=== PATIENT | male | born 1940 | race Caucasian/White ===

== ENCOUNTER 2019-11-10 13:20 | Outpatient (CLI) | payer MEDICARE, OTHER, SELFPAY ==
--- NOTE | ~2019-11-10 | XR_ITS ---
XR chest 2V 11/10/2019 13:40 Indication: Cough Procedure: 2 views chest Comparison: 05/16/2011 Findings: Heart size normal. No focal air space disease, pulmonary edema, pleural effusion or suspect ed pneumothorax. No acute osseous abnormality. Impression: 1: No acute cardiopulmonary disease. Reviewed, dictated and finalized at location A. Impression: 1: No acute cardiopulmonary disease.
== END 2019-11-10 13:21 | disposition home or self-care (01) ==
LOC: ANHIMG 13:28
PROVIDERS: PCP Internal Medicine; Visit Provider Internal Medicine
DX: R05 Cough (principal)
CPT/HCPCS: 71046

== ENCOUNTER 2019-11-16 08:59 | Outpatient (CLI) | payer MEDICARE, OTHER, SELFPAY ==
--- NOTE | ~2019-11-16 | CT_ITS ---
EXAMINATION: CT chest wo con DATE: 11/16/2019 09:35 INDICATION: Wheezing TECHNIQUE: Computed tomography (CT) of the chest was performed without intravenous contrast. The dose -length product (DLP) was 301.00 mGy-cm. Automated exposure control and iterative reconstruction tech nique were employed. COMPARISON: None FINDINGS: The lungs are free of acute opacities. There is no pleural effusion or pneumothorax. No pat hologically enlarged thoracic lymph nodes are identified. The heart size is normal. Calcified coronar y artery atherosclerosis is noted. There is a 3 mm nodule of the lingula. In the absence of known ris k factors, this likely represents old granulomatous disease and no further follow-up is necessary. Th ere is severe thoracic spondylosis. IMPRESSION: 1. No CT correlate for the patient's symptoms. Reviewed, dictated and finalized at location A.
== END 2019-11-16 09:00 | disposition home or self-care (01) ==
PROVIDERS: PCP Internal Medicine; Visit Provider Internal Medicine
DX: R06.2 Wheezing (principal)
CPT/HCPCS: 71250

== ENCOUNTER 2020-10-10 16:35 | Outpatient (CLI) | payer MEDICARE, SELFPAY ==
--- NOTE | ~2020-10-10 | XR_ITS ---
EXAMINATION: XR chest 2V DATE: 10/10/2020 16:52 INDICATION: 2-3 months of wheezing TECHNIQUE: PA and lateral views of the chest were obtained. COMPARISON: Chest radiograph dated 11/10/[address] dated 11/16/2019 FINDINGS: Mild eventration along the right hemidiaphragm. Mild biapical pleural-parenchymal scarring. Lungs rem ain clear with no focal airspace opacities, pulmonary edema, pleural effusion or pneumothorax. The ca rdiomediastinal silhouette is normal. Severe thoracic spondylosis. IMPRESSION: 1. No acute cardiopulmonary disease. Reviewed, dictated and finalized at location A. AIN ASSISTANT
== END 2020-10-10 16:36 | disposition home or self-care (01) ==
LOC: ANHIMG 16:40
PROVIDERS: PCP Internal Medicine; Visit Provider Internal Medicine
DX: R06.2 Wheezing (principal)
CPT/HCPCS: 71046

== ENCOUNTER 2021-04-18 09:03 | Outpatient (CLI) | payer MEDICARE, SELFPAY ==
--- NOTE | ~2021-04-18 | XR_ITS ---
XR knee LT min 4V 04/18/2021 09:25 Indication: Left knee pain Procedure: 4 views left knee Comparison: No prior studies for comparison. Findings: No fracture, subluxation or dislocation. No significant joint effusion. No foreign bodies. No joint space narrowing. There is anatomic alignment. Impression: 1: No significant bone or joint abnormality. Reviewed, dictated and finalized at location A. Impression: 1: No significant bone or joint abnormality.
== END 2021-04-18 09:04 | disposition home or self-care (01) ==
LOC: CHSIMG 09:06
PROVIDERS: PCP Internal Medicine; Visit Provider Orthopaedic Surgery
DX: M25.562 Pain in left knee (principal)
CPT/HCPCS: 73564

== ENCOUNTER 2021-08-27 10:35 | Outpatient (CLI) | payer MEDICARE, SELFPAY ==
--- NOTE | ~2021-08-27 | MR_ITS ---
EXAMINATION: MR knee LT wo con DATE: 08/27/2021 11:33 INDICATION: Left knee pain TECHNIQUE: Magnetic resonance imaging (MRI) of the left knee was performed without intravenous contra st. Sequences included coronal PD-weighted FSE, coronal PD-weighted FS FSE, sagittal T2-weighted FSE , sagittal PD-weighted FS FSE and axial PD weighted fat saturated FSE. COMPARISON: None. FINDINGS: Medial compartment: Complex tear of the medial meniscus with radial component at the lateral side of the posterior horn w ith longitudinal horizontal component extending medially and anterior into the body of the medial men iscus. There is marrow edema surrounding a minimally impacted subarticular fractures along a small re gion of the medial tibial plateau and juxtaposed anterior weightbearing medial femoral condyle. Both demonstrate mild depression of the articular cortices resulting in slight sloping to the articular co rtex along the anteromedial rim of the medial tibial plateau and very shallow concavity measuring 1.8 cm AP and 0.8 cm medial collateral along the articular cortex at the medial side of the anterior andreas ghtbearing medial femoral condyle. There is associated deep chondral fissuring and suggestion of some blisterlike delamination along the bone chondral interface interface at the anteromedial aspect of t he medial tibial plateau. Additional deep chondral fissuring/with the fracture at the anterior weight bearing medial femoral condyle with additional fissuring extending medially and posteriorly from the region of the fracture involving portion of the central weightbearing medial femoral condyle. Lateral compartment: Lateral meniscus is normal. Articular cartilage is normal. Patellofemoral compartment: Shallow chondral fissure involving less than 50% the cartilage thickness at the caudal aspect of the patellar apical ridge and patellofemoral cartilage is otherwise unremarkable. Ligaments and tendons: Anterior and posterior cruciate ligaments are normal. The medial collateral ligament and fibular steffen ateral ligament complex are normal. The extensor mechanism is normal. The visualized medial and later al hamstring tendons as well as the iliotibial band are normal. Fluid: Small left knee joint effusion. Suprapatellar plical band and mild synovitis at the suprapatellar ben ch. No loose osteochondral bodies identified. Osseous/other: Bone marrow signal is normal aside from previous noted edema associated with the fracture at the medi al tibial plateau and anterior weightbearing medial femoral condyle. No other fractures or pathologic marrow replacing process. IMPRESSION: 1. Complex tear of the body and posterior horn of the medial meniscus. 2. Osteochondral injuries including deep chondral fissuring and minimally depressed likely impaction fractures of the articular cortices at the anteromedial rim of the medial tibial plateau and juxtapos ed medial aspect of the anterior weightbearing medial femoral condyle. 3. Additional very small shallow chondral fissure at the inferior aspect of the patellar apical ridge . 4. Likely reactive small left knee joint effusion. Reviewed, dictated and finalized at location H. OPERATOR IMPRESSION: 1. Complex tear of the body and posterior horn of the medial meniscus. 2. Osteochondral injuries including deep chondral fissuring and minimally depre ssed likely impaction fractures of the articular cortices at the anteromedial r im of the medial tibial plateau and juxtaposed medial aspect of the anterior we ightbearing medial femoral condyle. 3. Additional very small shallow chondral fissure at the inferior aspect of the patellar apical ridge. 4. Likely reactive small left knee joint effusion.
== END 2021-08-27 10:36 | disposition home or self-care (01) ==
PROVIDERS: PCP Internal Medicine; Visit Provider Orthopaedic Surgery
DX: S83.232A Complex tear of medial meniscus, current injury, left knee, initial encounter (principal)
CPT/HCPCS: 73721

== ENCOUNTER 2022-01-20 08:13 | Outpatient (CLI) | payer MEDICARE, SELFPAY ==
[2022-01-20 09:07] LABS: Digoxin 0.7 ng/mL (0.8-2.0)
== END 2022-01-20 08:14 | disposition home or self-care (01) ==
PROVIDERS: PCP Internal Medicine; Visit Provider Anesthesiology
DX: Z51.81 Encounter for therapeutic drug level monitoring (principal); Z79.899 Other long term (current) drug therapy
CPT/HCPCS: 36415; 80162

== ENCOUNTER 2022-01-26 00:26 | Day surgery (SDC) | payer MEDICARE, SELFPAY ==
[2022-01-19 11:15] VITALS: BMI 29.6
--- NOTE | 2022-01-19 11:37 | PC.NURSE ---
Report to the Outpatient Waiting Room, entrance under the green pavilion located off [facility], at time _0830_ on date _01/26/22_. OR Time: __1030__. - You and your visitor will be asked a series of questions to screen for COVID 19 for your protection. - Only one visitor is allowed at this time. - The patient visitor is requested to leave or wait in car when not with patient. - A mask is required within the hospital. Patients may have clear liquids (water, carbonated beverages, clear teas, apple juice) until 3 hours prior to surgery (0730 AM)with a maximum of 20 ounces. - No food from midnight until time of surgery Take the following medications with a SIP of water the morning of surgery: _AMLODIPINE, DIGOXIN, METOPROLOL, SYMBICORT IF NEEDED_ Medications to discontinue per DR AMOR - PT STATES TO STOP DICLOFENAC, Date to take last dose 01/18/22_ Please no make-up, nail vietnamese, hairspray, perfume, deodorant, or body powder the day of surgery. No jewelry (including any body piercings) or valuables the day of surgery, leave them at home. Please take a shower or bath the night before, or the morning of, surgery with an antibacterial soap. Wear comfortable, loose fitting clothing. Children are encouraged to wear pajamas. - Jewelry must be removed prior to entering the operating room. Rings and piercings that are not removed may be cut off. - The hospital will not accept responsibility for valuables. - Please leave all valuables, including medications, at home the day of surgery. If you are going home after surgery, a licensed industrial tractor driver must drive you home. - NO public transportation without another adult. - We recommend that an adult stay with you for 24 hours following discharge. - We also recommend that you do not drive, make important decision, drink alcoholic beverages, or take any drugs that were not prescribed by your health care provider for at least 24 hours after your discharge time. Follow any additional instructions given to you from your surgeon. If you or anyone in your household have experienced Covid symptoms in the past week, please notify your surgeon or the nurse liaison at the phone number below for possible testing. Telephone instructions given to ____PT and asked if any additional questions and then verbalized understanding. Patient advised to call surgeon office or pre surgery nurse liaison [phone] if any additional questions.
[2022-01-26] VITALS (8 sets, daily range): BP systolic 138–163; BP diastolic 65–74; PULSE 61–72; RESP 10–19; TEMP 36.2–36.6; O2SAT 97–100
--- NOTE | 2022-01-26 07:14 | WPDHPUPDATE1 ---
History and Physical Update Update Date/Time: 01/26/22 07:14 History and Physical has been reviewed, including an updated exam of the patient. There are NO changes in the patient's condition. Risks, benefits, and alternatives have been discussed and questions answered. Patient agrees to proceed with procedure.
--- NOTE | 2022-01-26 12:45 | P.PNAN_ITS ---
Anes - Initial Pre Proc Eval Procedure: Operation Date: 01/26/22 13:30 Proposed Procedures p Left Knee Arthroscopy - Loyd Vergara MD Date/Time: 01/26/22 12:45 Surgeon: Loyd Vergara MD Pre Op Diagnosis: Lt Knee Medial Meniscus Tear Patient Data Age: 81 Gender: M Height: 1.78 m Weight: 93.63 kg Allergies Allergy/AdvReac Type Severity Reaction Status Date / Time No Known Allergies Allergy Verified 01/26/22 12:09 Home Medications Medication Instructions Recorded Confirmed Type digoxin 125 mcg (0.125 mg) tablet 125 mcg PO DAILY 08/21/19 01/26/22 History atorvastatin 40 mg tablet (Lipitor) 40 mg PO HS 04/11/20 01/26/22 History diclofenac sodium 75 mg 75 mg PO BID PRN pain #180 tabs 06/19/21 01/26/22 Rx tablet,delayed release amlodipine 2.5 mg tablet 2.5 mg QAM 01/19/22 01/26/22 History budesonide-formoterol HFA 160 2 puff inhalation Q12H PRN 01/19/22 01/26/22 History mcg-4.5 mcg/actuation aerosol Shortness Of Breath inhaler (Symbicort) metoprolol tartrate 50 mg tablet 50 mg BID 01/19/22 01/26/22 History tamsulosin 0.4 mg capsule 0.4 mg PO HS 01/19/22 01/26/22 History Patient hx anesthesia problems: none Family hx anesthesia problems: none Results Review: All pre-operative results and documents have been reviewed as part of the pre- operative evaluation. [facility] Past Medical History Medical History Afib Arrhythmia Arthritis Cataracts, bilateral HLD (hyperlipidemia) HTN (hypertension) Prediabetes Surgical History Surgical History History of skin surgery basal cell removed from nose Family History Family History Sibling Diabetes mellitus Carcinoma of colon Father Diabetes mellitus Other Family history of arthritis Social History Social History Smoking status: Never smoker Second hand tobacco smoke exposure: No Alcohol intake: never Substance use: never Substance use type: does not use Living arrangements: with family Gender identity (if verbalized by the patient): Male Spiritual care concerns: No Anes - Eval Final PreProcedure Day of Procedure 01/26/22 12:45 Patient weight: overweight Heart: regular rate and rhythm Airway: Mallampati scale class II Neurological: alert and oriented ASA classification: III Emergent: no Anesthesia type and monitoring: general LMA and standard monitoring Results Review: All pre-operative results and documents have been reviewed as part of the pre- operative evaluation. Informed Consent: The patient's anesthetic plan and its attendant risks and benefits were discussed with the patient/family/POA. Questions were solicited and answers provided to the satisfaction of the patient/family/POA.
[2022-01-26] MEDS: LACTATED RINGERS 1,000 ML 30 ML IV CONT ×2 (12:54→16:30)
[2022-01-26] MEDS: ACETAMINOPHEN 500 MG TABLET 1000 MG PO (13:44)
[2022-01-26] MEDS: CELECOXIB 200 MG CAPSULE PO (13:44)
[2022-01-26] MEDS: ceFAZolin 2 GM/D5W 50 ML 2 GM/50 ML BAG IVPB (15:11)
[2022-01-26] MEDS: methylPREDNISolone ACETATE 80 MG/ML VIAL I-ARTICULR (15:56)
[2022-01-26] MEDS: BUPIVACAINE HCL 0.5% PF 30 ML VIAL INFILTRATE (15:56)
--- NOTE | 2022-01-26 16:17 | W.PM.PROC2 ---
Procedure Note - Detailed Date of Procedure 01/26/22 Pre-op Diagnosis Lt Knee Medial Meniscus Tear Post-op Diagnosis Other (SAME WITH [facility]D MEDIAL COMPARTMENT) Procedure Performed LEFT KNEE SCOPE Surgeon Loyd Vergara MD Anesthesia General Description of Procedure PATIENT WAS TAKEN TO THE OR. LEFT LEG WAS PREPPED AND DRAPED STERILE. TROCARS WERE PLACED IN THE USUAL FASHION. CAMERA WAS INTRODUCED. THERE WAS CHONDROMALACIA TO THE PATELLA FEMORAL JOINT. THERE WAS A LOT OF SYNOVITIS IN ALL COMPARTMENTS. THE MEDIAL COMPARTMENT SHOWED FULL THICKNESS CARTILAGE LOSS. A SHAVER WAS USED TO PREFORM A CHONDROPLASTY. THERE WAS A COMPLEX MEDIAL MENISCUS TEAR. THE TEAR WAS RESECTED WITH A BITER AND A SHAVER DOWN TO A SMOOTH BASE. THE ACL WAS INTACT. THE LATERAL MENISCUS WAS NOT TORN. THE LATERAL COMPARTMENT HAD MINIMAL CHONDROMALACIA. CHONDROPLASTY WAS PREFORMED. A SYNOVECTOMY WAS PREFORMED WELL. THE PATELLO FEMORAL JOINT UNDERWENT CHONDROPLASTY. THERE WAS GRADE 2 CHONDROMALACIA IN PART OF THE TROCHLEA AND PART OF THE PATELLA. SYNOVECTOMY WAS PREFORMED IN THE SUPERIOR MEDIAL COMPARTMENT. THE WOUNDS WERE APPROXIMATED WITH 4.0 NYLON. STERILE DRESSING WAS APPLIED. PATIENT WAS EXTUBATED. Estimated Blood Loss 5 Complications No immediate complications Condition Stable Disposition PACU
[2022-01-26] MEDS: fentaNYL CITRATE INJ (*CRX) 100 MCG/2 ML VIAL 25 MCG IV PUSH ×3 (16:24→16:47)
[2022-01-26] MEDS: oxyCODONE HCL (*CRX) 5 MG TAB IR PO (17:34)
== END 2022-01-26 18:00 | disposition home or self-care (01) ==
PROVIDERS: PCP Internal Medicine; Visit Provider Orthopaedic Surgery
PROC: (CPT 29870; principal; 2022-01-26 13:30)
DX: M23.332 Other meniscus derangements, other medial meniscus, left knee (principal); M17.12 Unilateral primary osteoarthritis, left knee; M22.42 Chondromalacia patellae, left knee; M65.862 Other synovitis and tenosynovitis, left lower leg; I10 Essential (primary) hypertension; E78.5 Hyperlipidemia, unspecified; R73.03 Prediabetes; Z79.51 Long term (current) use of inhaled steroids
CPT/HCPCS: 29881; A9270; J0690; J1040; J2704; J3010; J7120

== ENCOUNTER → 2022-12-19 15:03 | Outpatient (CLI) | payer MEDICARE, SELFPAY ==
--- NOTE | ~2022-12-19 | XR_ITS ---
EXAMINATION: XR chest 2V 12/19/2022 15:42 INDICATION: Wheezing. Cough. PROCEDURE: 2 view chest COMPARISON: 10/10/2020 FINDINGS: The lungs are clear. The cardiomediastinal silhouette is within normal limits. There are no pleural effusions. There is no pneumothorax suspected. The lungs are hyperinflated which is cons istent with, but not diagnostic of chronic obstructive pulmonary disease. IMPRESSION: 1: NO ACUTE CARDIOPULMONARY DISEASE. Reviewed, dictated and finalized at location A.
== END ==
PROVIDERS: PCP Internal Medicine; Visit Provider Clinical Nurse Specialist
DX: R06.2 Wheezing (principal)
CPT/HCPCS: 71046

== ENCOUNTER 2023-12-25 23:27 | Emergency (ER) | payer MEDICARE, SELFPAY ==
--- NOTE | ~2023-12-25 | CT_ITS ---
CT of the Abdomen and Pelvis: Indication: Abdominal pain Technique: 2.5 mm axial scans were obtained through the abdomen and pelvis following intravenous adm inistration of 100 cc of Omnipaque 350. Dose reduction technique was used on this scan by utilizing a utomated exposure control and iterative reconstruction technique. The dose-length product (DLP) was 8 01.09 mGy-cm. Findings: Scans through the lung bases are unremarkable. The liver, spleen, pancreas, gallbladder, adrenals and kidneys are within normal limits. There are at herosclerotic calcifications of the aorta. No lymphadenopathy. There is mild wall thickening extensively involving the large bowel, especially transverse and descen ding colon. No bowel obstruction. No abscess or free air. Images through the pelvis were performed. Urinary bladder unremarkable. Prostate markedly enlarged. N o ascites. Impression: Findings consistent with infectious/inflammatory colitis, especially involving transverse and descend ing colon. Markedly enlarged prostate gland. Reviewed, dictated and finalized at location . Impression: Findings consistent with infectious/inflammatory colitis, especially involving transverse and descending colon. Markedly enlarged prostate gland.
[2023-12-25 23:31] VITALS: BP 153/68; PULSE 94; RESP 18; TEMP 36.4; O2SAT 100
[2023-12-25 23:53] VITALS: BP 150/71; PULSE 94; RESP 12; TEMP 36.7; O2SAT 99
[2023-12-26 00:03] LABS: Basophils Percent Auto 0.5 % (0.2-1.2); Eosinophils Absolute Auto 0.1 K/mm3 (0-0.3); Eosinophils Percent Auto 1.3 % (0-4.4); Hematocrit 36.5 % (42.0-52.0); Immature Granulocyte Absolute 0.02 K/mm3 (0.00-0.031); Immature Granulocyte Percent A 0.3 % (0-0.5); Lymphocytes Absolute Auto 0.83 K/mm3 (0.9-3.2); Mean Corpuscular HGB Conc 32.9 g/dl (32-36); Mean Corpuscular Hemoglobin 30.3 pg (26-34); Mean Corpuscular Volume 92.2 fl (80-100); Mean Platelet Volume 8.7 fl (7.4-10.4); Monocytes Absolute Auto 1.2 K/mm3 (0.1-0.6); Monocytes Percent Auto 15.4 % (2.6-8.5); Neutrophils Absolute Auto 5.4 K/mm3 (1.3-6.7); Neutrophils Percent Auto 71.5 % (45.5-73.1); Platelet Count Result 298 k/mm3 (150-375); Red Blood Count 3.96 M/mm3 (4.6-6.20); Red Cell Distribution Width 12.8 % (11.5-14.5); White Blood Count 7.5 K/mm3 (4.5-10.0)
[2023-12-26 00:19] LABS: Alanine Aminotransferase 46 U/L (6-50); Alkaline Phosphatase 101 U/L (38-126); Anion Gap 8 mmol/L (4-12); Aspartate Amino Transferase 32 U/L (17-59); Bilirubin,Total 1.2 mg/dL (0.2-1.3); Blood Urea Nitrogen 17 mg/dL (9-20); Calcium 9.4 mg/dL (8.4-10.2); Carbon Dioxide 22 mmol/L (22-30); Chloride 103 mmol/L (98-107); Estimated CRCL calculation 79 ml/min; Estimated Glomerular Filt Rate > 60; Glucose 136 mg/dL (65-110); Lipase 21 U/L (23-300); Potassium 3.7 mmol/L (3.4-5.0); Sodium 133 mmol/L (137-145)
[2023-12-26 01:45] VITALS: BP 142/72; PULSE 89; RESP 20; O2SAT 97
[2023-12-26 01:45] LABS: Appearance Urine Clear (Clear); Bacteria Urine None Seen /hpf; Bilirubin Urine Negative (Negative); Blood Urine Negative (Negative); Color Urine Yellow (Yellow); Glucose Urine UA Negative (Negative); Ketones Urine Trace mg/dL (Negative); Leukocyte Esterase Ur Negative LEU/UL (Negative); Nitrate Urine Negative (Negative); Protein Urine Trace mg/dL (Negative); RBC Urine 0-2 /hpf (0-2); Squamous Epithelial Cell Urine None Seen /hpf (Few); WBC Urine 0-5 /hpf (0-3); pH Urine 5.5 (5.0-9.0)
[2023-12-26 01:46] LABS: Specific Grav Ur 1.045 (1.001-1.035)
[2023-12-26 01:47] LABS: Add Urine Microscopic? YES
--- NOTE | 2023-12-26 02:46 | ED.ABDPAIN ---
HPI - Abdominal Pain General Chief Complaint: Abdominal Pain Stated Complaint: knee pain, constipation, gas Time Seen by Provider: 12/26/23 00:38 History of Present Illness HPI narrative: Patient is an 83-year-old female who presents emergency department evening complaining of loose stools and abdominal cramping. Patient states the cramping is generalized. He admits that he had a bowel movement 4 hours prior to coming to the Emergency Department states that his bowel is very loose. Patient denies any nausea or vomiting. Patient had a left total knee replacement approximately 1 week ago and is currently denying any knee pain or any concerns regarding his recent surgery. Patient has been taking some narcotics for the pain but only when needed. He denies any fevers or chills at home, is currently denying any additional symptoms at this time. Related Data Home Medications Medication Instructions Recorded Confirmed digoxin 125 mcg (0.125 mg) tablet 125 mcg PO DAILY 08/21/19 11/20/23 amlodipine 2.5 mg tablet 5 mg PO QAM 07/18/22 11/20/23 atorvastatin 40 mg tablet (Lipitor) 80 mg PO HS 07/18/22 11/20/23 fexofenadine 180 mg tablet 180 mg PO DAILY 11/20/23 11/20/23 peg 400-propylene glycol 0.4 %-0.3 1 drp EACH EYE DAILY PRN 11/20/23 11/20/23 % eye drops (Systane Ultra) Allergies Allergy/AdvReac Type Severity Reaction Status Date / Time No Known Allergies Allergy Verified 11/20/23 08:37 Review of Systems Review of Systems: All systems are reviewed and are negative unless stated otherwise in the HPI. [facility] Past Medical History Medical History Afib Arrhythmia Arthritis Cataracts, bilateral HLD (hyperlipidemia) HTN (hypertension) Prediabetes Surgical History Surgical History H/O lateral meniscus repair of left knee History of skin surgery basal cell removed from nose Family History Family History Sibling Diabetes mellitus Carcinoma of colon Father Diabetes mellitus Other Family history of arthritis Social History Social History Smoking status: Never smoker Second hand tobacco smoke exposure: No Alcohol intake: never Substance use: never Substance use type: does not use Lack of Transportation: No Lack of Food: Never True Current Housing: I Have Housing Concerned About Future Housing: No Difficulty Paying Gas/Electric Bills: No Difficulty Paying for Meds: No Currently Unemployed: No Education: Associate Degree Difficulty w/ Childcare or Family Care: No Living arrangements: with family Occupation/Education: retired Gender identity (if verbalized by the patient): Male Spiritual care concerns: No Exam Narrative: General: Alert, awake, afebrile, in no acute distress. Cardiovascular: Regular rate and rhythm, no murmurs, rubs or gallops, no peripheral edema. Respiratory: Clear to auscultation bilaterally, no tachypnea, no wheezing, no rhonchi, no rubs, no respiratory distress. Abdomen: Soft, nontender, audible bowel sounds, distended, no rebound, no guarding, no peritoneal signs. Musculoskeletal: No joint swelling or deformity, normal muscle tone. Skin: No rashes or petechia, no signs of infection. Psychiatric: Alert and oriented, normal behavior and judgment for situation. Neurological: Alert and oriented to person, place, and time. Follows all commands. No focal deficits, speech is clear and fluent. Course Vital Signs Vital signs: Vital Signs Temperature 97.5 F L 12/25/23 23:31 Pulse Rate 94 12/25/23 23:31 Respiratory Rate 18 12/25/23 23:31 Blood Pressure 153/68 H 12/25/23 23:31 Pulse Oximetry 100 12/25/23 23:31 Oxygen Delivery Room Air 12/25/23 23:31 Temperature 98.1 F 12/25/23 23:53 Pulse Rate 89 04/
[2023-12-26 03:05] VITALS: BP 151/63; PULSE 86; RESP 14; O2SAT 97
== END 2023-12-26 03:20 | disposition home or self-care (01) ==
PROVIDERS: Emergency Provider Emergency Medicine; PCP Internal Medicine
DX: K52.9 Noninfective gastroenteritis and colitis, unspecified (principal); I48.91 Unspecified atrial fibrillation; I10 Essential (primary) hypertension; E78.5 Hyperlipidemia, unspecified; R73.03 Prediabetes; M19.90 Unspecified osteoarthritis, unspecified site; Z85.828 Personal history of other malignant neoplasm of skin
CPT/HCPCS: 36415; 74177; 80053; 81001; 83690; 85025; 99284; Q9967

== ENCOUNTER 2024-02-04 10:37 | Outpatient (CLI) | payer MEDICARE, SELFPAY ==
[2024-02-04 13:12] LABS: Basophils Absolute Auto 0.1 K/mm3 (0.0-0.1); Basophils Percent Auto 0.9 % (0.2-1.2); Eosinophils Absolute Auto 0.4 K/mm3 (0-0.3); Eosinophils Percent Auto 5.3 % (0-4.4); Hematocrit 44.5 % (42.0-52.0); Hemoglobin 14.5 g/dL (14.0-18.0); Immature Granulocyte Absolute 0.02 K/mm3 (0.00-0.031); Immature Granulocyte Percent A 0.3 % (0-0.5); Lymphocytes Absolute Auto 0.95 K/mm3 (0.9-3.2); Lymphocytes Percent Auto 13.6 % (18.3-44.2); Mean Corpuscular HGB Conc 32.6 g/dl (32-36); Mean Corpuscular Hemoglobin 30.1 pg (26-34); Mean Corpuscular Volume 92.3 fl (80-100); Mean Platelet Volume 9.2 fl (7.4-10.4); Monocytes Absolute Auto 0.8 K/mm3 (0.1-0.6); Neutrophils Absolute Auto 4.8 K/mm3 (1.3-6.7); Neutrophils Percent Auto 68.9 % (45.5-73.1); Platelet Count Result 261 k/mm3 (150-375); Red Blood Count 4.82 M/mm3 (4.6-6.20); Red Cell Distribution Width 13.5 % (11.5-14.5)
[2024-02-04 13:21] LABS: Hemoglobin A1C 5.3 % (<5.7)
[2024-02-04 13:28] LABS: Alanine Aminotransferase 22 U/L (6-50); Albumin Level 4.8 g/dL (3.5-5.1); Alkaline Phosphatase 135 U/L (38-126); Anion Gap 11 mmol/L (4-12); Aspartate Amino Transferase 26 U/L (17-59); Bilirubin,Total 0.8 mg/dL (0.2-1.3); Blood Urea Nitrogen 20 mg/dL (9-20); Calcium 9.5 mg/dL (8.4-10.2); Carbon Dioxide 25 mmol/L (22-30); Chloride 103 mmol/L (98-107); Estimated Glomerular Filt Rate > 60; Glucose 127 mg/dL (65-110); Potassium 4.2 mmol/L (3.4-5.0); Sodium 139 mmol/L (137-145)
== END 2024-02-04 10:38 | disposition home or self-care (01) ==
PROVIDERS: PCP Internal Medicine; Visit Provider Nurse Practitioner
DX: R73.03 Prediabetes (principal); R19.7 Diarrhea, unspecified
CPT/HCPCS: 36415; 80053; 83036; 85025

== ENCOUNTER 2024-10-13 14:26 | Outpatient (CLI) | payer MEDICARE, SELFPAY ==
--- OUTSIDE RECORDS SUMMARY | 2024-10-13 15:14 | XMS_ITS | Encounter Summary ---
Author Organization [facility] Address [address] [place] [address] Care Team Providers Care Sales Facilitator Name Role Phone Sancho Almazan DO Primary Care Provider [phone] Encounter Details Date Type Department Care Team (Late st Contact Info) Description 12/18/2017 Lab Requisition [facility] [address] [place] [address] Rizwan [place] [address] Social History Tobacco Use Types Packs/Day Years Used Date Smoking Tobacco: Former Sex and Gender Information Value Date Recorded Sex Assigned at Not on file Gender Identity Not on file Sexual Orientation Not on file documented as of this encounter Plan of Treatment Not on file documented as of this encounter Procedures Procedure Name Priority Date/Time Associated Diagnosis Comments DERMATOPATHOLOGY Routine 12/17/2017 12:0 0 AM CDT documented in this encounter Results * DERMATOPATHOLOGY (12/17/2017 12:00 AM CDT) Case Report Dermatopathology Report Case: [id number] Authorizing Provider: Rizwan Garland MD Collected: 12/17/2017 12:00 AM Pathologist: Joni Ramirez MD Received: 12/18/2017 12:42 PM Specimens: A) - Skin, nasal bridge midline B) - Skin, right nasal bridge 8 2:16 PM CDT DERMATOPATHOLOGY LABORATORY Final Diagnosis Specimen A. SKIN, nasal bridge midline: BASAL CELL CARCINOMA, INFILTRATIVE PATTERN (C44.311) PRESENT AT MARGIN Specimen B. SKIN, right nasal bridge: BASAL CELL CARCINOMA, INFILTRATIVE PATTERN (C44.311) PRESENT AT MARGIN 2:16 PM [facility] DERMATOPATHOLOGY LABORATORY Clinical History A: R/O BCC. Check margins. B: R/O scar. Check margins. 2:16 PM [facility] DERMATOPATHOLOGY LABORATORY Gross Description Specimen: A: Received is one formalin filled container labeled with the patient's name and designated nasal bridge midline. The specimen consists of a shave biopsy measuring [id number]. The margin is inked green. Jar 0. Specimen: B: Received is one formalin filled container labeled with the patient's name and designated right nasal bridge. The specimen consists of a shave biopsy (2 pieces) measuring [id number] & [id number]. The margins are inked green. Jar 0. 2:16 PM [facility] DERMATOPATHOLOGY LABORATORY Microscopic Description Specimen A. SKIN, nasal bridge midline: Within the dermis there are nodular aggregates of basaloid cells associated with fibromyxoid stroma and epithelial-stromal clefts. At the advancing margin of the neoplasm, there are smaller angulated nests that infiltrate the dermis. This lesion is present at the margin of the specimen. Specimen B. SKIN, right nasal bridge: Within the dermis there are nodular aggregates of basaloid cells associated with fibromyxoid stroma and epithelial-stromal clefts. At the advancing margin of the neoplasm, there are smaller angulated nests that infiltrate the dermis. This lesion is present at the margin of the specimen. 2:16 PM T DERMATOPATHOLOGY LABORATORY Disclaimer An external and internal positive and negative controls are appropriate for the histochemical, immunohistochemical and immunofluorescence stain(s) in this case (if any), except where stated explicitly. The performance characteristics of the stain(s) cited in this report were developed and its performance characteristic determined by the Dermatopathology Laboratory at [facility]. These tests need not be, and therefore are not, approved by the [place] Food and Drug Administration. The tests are used for clinical purposes. Billing Codes Specimen Charges Stain Charges 44639 43387 1 1 2:16 PM CDT DERMATOPATHOLOGY LABORATORY Embedded Images 2:16 PM CDT DERMATOPATHOLOGY LABORATORY Pathology/Cytology TISSUE SPECIMEN FROM SKIN / Unknown 12/17/2017 12/18/2017 12:42 PM CDT Miscellaneous samples (specimen) TISSUE SPECIMEN FROM SKIN / Unknown 12/17/2017 12/18/2017 12:42 PM CDT Rizwan Garland MD LAB - PATHOLOGY/CYTO LOGY ORDERABLES DERMATOPATHOLOGY LABORATORY [facility] - Department of Dermatology [address] [place] [address], [address] Floor Lab [address] [phone] documented in this encounter Visit Diagnoses Not on filedocumented in this encounter Care Teams Sales Facilitator Relationship Specialty Start Date End Date Sancho Almazan DO PCP - General Internal Medicine 09/26/23 documented as of this encounter
--- OUTSIDE RECORDS SUMMARY | 2024-10-13 15:14 | XMS_ITS | Continuity of Care Document ---
Author Organization [facility] [place] Address [address] [place] [address] Phone Care Team Providers Care Frit Coater Name Role Phone Viveros OD, Arron Unavailable Unavailable Procedures Procedure Date Eye Exam & Treatment Refraction Eye Exam & Treatment No Script Eye Exam & Treatment Refraction Eye Exam & Treatment Refraction Advance Directives Directive Yes / No Effective Date File Name No Information Encounters Encounter Description Practice Location Reason(s) For Visit Diagnoses Date Provider Providers Copied on Encounter [facility], [address] [place] [address] [address], [place], [place], [id number], [place] tel:[phone] [facility] No Information 6-201 0 Viveros OD Arron. [address], [place], [place], [facility], [place]. tel:[phone] [facility], [id number] [place] [address] [address], [place], [place], [id number], [place] tel:[phone] [facility] No Information 9-200 9 Viveros OD Arron. [address], [place], [address], [place]. tel:[phone] [facility], [address], [place], [place], [id number], tel:[phone] [facility] No Information 1-200 8 Viveros OD Arron. [address], [place], [address], [place]. tel:[phone] [facility], [address], [place], [place], [id number], [place] tel:[phone] [facility] No Information 0200 7 Viveros OD Arron. [address] , [address], [place], [address], [place]. tel:[phone] Family History Family Member Type Diagnosis Age At Onset No Information Payers Payer name Insurance type Covered green party ID Authoriza tibertha(s) [place] [id number] [facility] [id number] Social History Type Description Quantity Date Captured Comments Sex Male Smoking Status No Information Chief Complaint And Reason For Visit No Information Reason For Referral Reason For Referral No Information History Of Present Illness Encounter Date Complaint History Of Prese nt Illness No Information Functional Status Date Functional Assessmen t No Information Instructions Date Instruction Additional Infor mation No Information Assessments Type Assessment Date No Information Patient Care Teams Name Effective Dates (start - stop) Status Members No Information
--- OUTSIDE RECORDS SUMMARY | 2024-10-13 15:14 | XMS_ITS | Clinical Summary ---
Author Organization [facility] Address [address] [place] [address] Care Team Providers Care Volunteer Fire Fighter Name Role Phone Sancho Almazan DO Primary Care Provider [phone] Allergies No known active allergies Medications ezetimibe (ZETIA) 10 mg tablet Take 10 mg by mouth daily 0 Active tamsulosin (FLOMAX) 0.4 mg extended release capsule Take 1 capsule (0.4 mg total) by mouth daily 0 Active metoprolol tartrate (LOPRESSOR) 50 mg immediate release tablet Take 1 tablet (50 mg total) by mouth 2 (two) times a day [address] (VOLTAREN) 75 mg EC tablet 1 Active budesonide-form oteroL (SYMBICORT) 160-4.5 mcg/actuation inhaler INHALE 2 PUFFS BY MOUTH EVERY 12 HOURS NEEDED FOR SHORTNESS OF BREATH 3 Active digoxin (LANOXIN) 125 mcg (0.125 mg) tablet TAKE 1 TABLET BY MOUTH EVERY DAY 90 tablet 3 4 Active fexofenadine (LEYDI) 180 mg tablet Take 0.5 tablets (90 mg total) by mouth nightly Active fluticasone propionate (FLONASE) 50 mcg/actuation nasal spray Administer 2 sprays into affected nostril(s) nightly Active omeprazole (PriLOSEC) 20 mg capsule Take 1 capsule (20 mg total) by mouth daily 4 12/18/19 25 Active oxyCODONE (ROXICODONE) 5 mg immediate release tablet Take 1-2 tablets (5-10 mg total) by mouth every 4 (four) hours as needed 4 Active amLODIPine (NORVASC) 5 mg tablet TAKE 1 TABLET(5 MG) BY MOUTH DAILY 90 tablet 3 4 Active atorvastatin (LIPITOR) 40 mg tablet Take 1 tablet (40 mg total) by mouth daily 5 Active Active Problems Problem Noted Date Diagnosed Date Primary osteoarthritis of left knee 09/03/2023 Presence of right artificial knee joint 09/03/19 24 Hyperlipidemia 05/28/2022 COVID 06/14/2021 Paroxysmal SVT (supraventricular tachycardia) Encounters Date Type Department Care Team Description 08/10/2024 8:30 AM NURSE OBGYN Office Visit [facility] [address] [address] Lesley Mak NP Paroxysmal SVT (supraventricular tachycardia) (HCC) (Primary Dx); Hyperlipidemia, unspecified hyperlipidemia type; Atrial fibrillation, unspecified type (HCC); Dyslipidemia from Last 3 Months Surgical History Surgery Date Site/Laterality Comments REPLACEMENT TOTAL KNEE Right SKIN CANCER EXCISION Medical History Medical History Date Comments Hypertension Atrial fibrillation with RVR (CMS/HCC) (HCC) Asthma Arthritis Enlarged prostate Social History Tobacco Use Types Packs/Day Years Used Date Smoking Tobacco: Never Smokeless Tobacco: Never Tobacco Cessation:Counseling Given: Not Answered Sex and Gender Information Value Date Recorded Sex Assigned at Not on file Legal Sex Male 2:18 PM NURSE OBGYN Gender Identity Not on file Sexual Orientation Not on file Obstetrics History Last Filed Vital Signs Vital Sign Reading Time Taken Comments Blood Pressure 136/78 08/10/2024 8:34 AM NURSE OBGYN Pulse 62 08/10/2024 8:34 AM NURSE OBGYN Temperature 36.5 C (97.7 F) 09/07/2023 9:02 AM NURSE OBGYN Respiratory Rate 20 09/07/2023 9:02 AM NURSE OBGYN Oxygen Saturation 97% 09/07/2023 9:02 AM NURSE OBGYN Inhaled Oxygen Concentration - - Weight 94.8 kg (209 lb) 08/10/2024 8:34 AM NURSE OBGYN Height 175.3 cm (5' 9 ) 08/10/2024 8:34 AM NURSE OBGYN Body Mass Index 30.86 08/10/2024 8:34 AM NURSE OBGYN Plan of Treatment Health Maintenance Due Date Last Done Comments Depression Screening 1941 DTaP/Tdap/Td Vaccine (1 - Tdap) 1952 Hepatitis B Screening 1959 Zoster Vaccine (1 of 2) 1991 Well Visit 65+ 2006 Fall Risk Assessment 06/15/2022 06/15/2021 Influenza Vaccine (#1) 2024 9, 06/05/2018, 05/20/2017, Additional history exists Pneumococcal vaccine 65+ Completed 06/03/2019, 01/02 Insurance MEDICARE [facility] MEDICARE SUPPLEMENT INSURANCE MEDICARE [facility] MEDICARE SUPPLEMENT INSURANCE Care Teams Volunteer Fire Fighter Relationship Specialty Start Date End Date Sancho Almazan DO PCP - General Internal Medicine 05/16/20
--- OUTSIDE RECORDS SUMMARY | 2024-10-13 15:14 | XMS_ITS | Patient Health Summary ---
Author Organization [facility] Address [address] [place] [address] Care Team Providers Care Manager Relationship Name Role Phone Kasandrayancy Sancho Mihir DO Primary Care Provider [phone] Note [address] [facility],non-owned Affiliates and Associated Physician Practices is amultiple site organization consisting of ambulatory clinics and hospital sitesin [place], [place], [place] and [place]. This disclosure is being madepursuant to the Care Everywhere program and may not contain all information available regarding this patient. Last updated 18.[facility] Allergies No known active allergies Medications * Be aware that medications may not be up to date on this document. Alwaysverify current medications with the patient. * TAMSULOSIN HCL PO Take 0.4 mg by mouth at bedtime * METOPROLOL TARTRATE PO Take 50 mg by mouth 2 times daily * amLODIPine (Norvasc) 5 MG tablet(Started 08/11/2023) Reasons: High Blood Pressure Disorder * budesonide-formoterol (Symbicort) 160-4.5 MCG/ACT inhaler(Started 07/02/2023) INHALE 2 PUFFS BY MOUTH EVERY 12 HOURS NEEDED FOR SHORTNESS OF BREATH * digoxin (Lanoxin) 0.125 MG tablet(Started 06/15/2023) Take 1 (one) tablet by mouth once daily * Polyethyl Glycol-Propyl Glycol (SYSTANE ULTRA OP) 1 drop by Ophthalmic route at bedtime * fexofenadine (Beba) 180 MG tablet Take 0.5 (one-half) tablet by mouth at bedtime * atorvastatin (Lipitor) 40 MG tablet Take 1 (one) tablet by mouth at bedtime * fluticasone propionate (Flonase) 50 MCG/ACT nasal spray [place] 2 (two) sprays into each nostril at bedtime * acetaminophen CR (Acetaminophen 8 Hour) 650 MG tablet(Started 12/18/2023) Take 650 mg by mouth every 8 hours as needed for Pain. Indications: Pain * senna-docusate (Senokot-S) 8.6-50 MG tablet(Started 12/18/2023) Take 1 tablet by mouth 2 times daily. Indications: Constipation * Polyethyl Glycol-Propyl Glycol (SYSTANE ULTRA OP)(Started 12/18/2023) 1 drop by Ophthalmic route at bedtime. 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 * diclofenac sodium EC (Voltaren) 75 MG tablet(Started 12/19/2023) Take 1 (one) tablet by mouth 2 times daily as needed * oxyCODONE, immediate release, (Roxicodone) 5 MG tablet(Started 01/31/2024) Take 1 (one) tablet to 2 (two) tablets by mouth every 4 hours as needed for Pain (pain) Reasons: Mod to Severe Pain * metroNIDAZOLE (Flagyl) 500 MG tablet(Started 02/04/2024) TAKE 1 TABLET BY MOUTH EVERY 8 HOURS FOR 10 DAYS * amoxicillin (Amoxil) 500 MG capsule(Started 04/21/2024) Take 4 (four) capsules by mouth 1 Hour prior to Dental Appointment 3 refills by 04/21/2025 * aspirin EC (Ecotrin) 81 MG tablet(Started 12/18/2023) TAKE ONE TABLET BY MOUTH 2 TIMES A DAY FOR 42 DAYS. TAKE FOR BLOOD CLOT PREVENTION FOR 6 WEEKS * omeprazole (PriLOSEC) 20 MG capsule(Started 12/18/2023) TAKE ONE CAPSULE BY MOUTH ONCE DAILY FOR 42 DAYS * celecoxib (CeleBREX) 100 MG capsule(Started 12/18/2023) TAKE ONE CAPSULE BY MOUTH 2 TIMES A DAY FOR 42 DAYS Active Problems Problem Noted Date Diagnosed Date Presence of right artificial knee joint 09/03/19 24 Primary osteoarthritis of left knee 09/03/2023 Social History Tobacco Use Types Packs/Day Years Used Date Smoking Tobacco: Former Smokeless Tobacco: Never Tobacco Cessation:Counseling Given: Not Answered Alcohol Use Standard Drinks/Week Comments Never 0 (1 standard drink = 0.6 oz pur e alcohol) OASIS D0700: Social Isolation Answer Da te Recorded Frequency of experiencing loneliness or isolatio n Never 01/10/2024 OASIS A1250: Transportation Answer Date Recorded Lack of Transportation (Medical) No 01/10/2024 Lack of Transportation (Non-Medical) No 01/10/2024 Patient Unable or Declines to Respond No 01/10/2024 OASIS B1300: Health Literacy Answer Natanael e Recorded Frequency of needing help to read materials from doctor or pharmacy Never 01/10/2024 AUDIT-C Answer Date Recorded Q1: How often do you have a drink containing alcohol? Never 12/18/2023 Q2: How many drinks containi ng alcohol do you have on a typical day when you are drinking? Patient does not drink Q3: How often do you have si x or more drinks on one occasion? Never 12/18/2023 Overall Financial Resource Strain (CARDIA) Answe r Date Recorded How hard is it for you to pa y for the very basics like food, housing, medical care, and heating? Not hard at all 12/19/2023 [facility] - Occupational Stress Questionnaire Answer Date Recorded Do you feel stress - tense, restless, nervous, or anxious, or unable to sleep at night because your mind is troubled all the time - these days? Not at all 12/19/2023 Hunger Vital Sign Answer Date Recorded Within the past 12 months, y ou worried that your food would run out before you got the money to buy more. Never true 12/19/19 24 Within the past 12 months, t he food you bought just didn't last and you didn't have money to get more. Never true 12/19/2023 PRAPARE - Transportation Answer Date Re corded In the past 12 months, has l ack of transportation kept you from medical appointments or from getting medications? No 12/01 In the past 12 months, has l ack of transportation kept you from meetings, work, or from getting things needed for daily living? No 12/19/2023 Housing Stability Vital Sign Answer Natanael e Recorded In the last 12 months, was t here a time when you were not able to pay the mortgage or rent on time? No 12/19/2023 In the last 12 months, how many places have you lived? 1 12/19/2023 In the last 12 months, was t here a time when you did not have a steady place to sleep or slept in a senior care (including now)? No 12/19/2023 Sex and Gender Information Value Date Recorded Sex Assigned at Not on file Gender Identity Not on file Sexual Orientation Not on file Last Filed Vital Signs Vital Sign Reading Time Taken Comments Blood Pressure 122/70 01/10/2024 10:05 AM CDT Pulse 65 01/10/2024 10:05 AM CDT Temperature 36.2 C (97.1 F) 01/10/2024 10:05 AM CDT Respiratory Rate 18 01/10/2024 10:05 AM CDT Oxygen Saturation 98% 01/10/2024 10:05 AM CDT Inhaled Oxygen Concentration - - Weight 93.4 kg (206 lb) 12/20/2023 2:42 PM CDT Height 175.3 cm (5' 9 ) 12/20/2023 2:42 PM CDT Body Mass Index 30.42 12/20/2023 2:42 PM CDT Medical Devices Implanted Type Area Electrical Logging Engineer Device Identifier Shelf Expiration Date Model / Serial / Lot Cmnt Bone Plc R 40gm Grn Implanted:Qty: 2 on 12/18/2023 by Darius Alexandra MD at [facility] Left: Knee [employer] 04/01/2026 [id number] / / [id number] Cmpnt Fem Kn Lt Cr Cmnt Prm Vngrd Intlk 70 Mm Implanted:Qty: 1 on 12/18/2023 by Darius Alexandra MD at [facility] Left: Knee [employer] 09/11/2033 [id number] / / [id number] Cmpnt Ptlr Std 31mm 3 Pg Kn Ser A Implanted:Qty: 1 on 12/18/2023 by Darius Alexandra MD at [facility] Left: Knee [employer] 09/13/2028 [id number] / / [id number] Tray Tib 79mm Kn Cocr I Beam Implanted:Qty: 1 on 12/18/2023 by Darius Alexandra MD at [facility] Left: Knee [employer] 10/08/2033 [id number] / / [id number] Brng 06v64uy Vngrd Vivacit-E Kn Ant Stab Implanted:Qty: 1 on 12/18/2023 by Darius Alexandra MD at [facility] Left: Knee [employer] 04/08/2027 [id number] / / [id number] Procedures * XR KNEE LEFT 3VW(Performed 01/31/2024) Performed for Aftercare following left knee joint replacement surgery * NEURAXIAL BLOCK(Performed 12/18/2023) * MS TOTAL KNEE REPLACEMENT(Performed 12/18/2023) * EKG 12-LEAD(Performed 11/06/2023) Performed for Preop examination * COMPREHENSIVE METABOLIC PANEL(Performed 11/06/2023) Performed for Preop examination * CBC W AUTO DIFFERENTIAL(Performed 11/06/2023) Performed for Preop examination * XR KNEE LEFT 3VW(Performed 08/29/2023) Performed for Left knee pain, unspecified chronicity * DERMATOPATHOLOGY(Performed 09/10/2018) * DERMATOPATHOLOGY(Performed 12/17/2017) * DERMATOPATHOLOGY(Performed 07/28/2013) Results * XR KNEE LEFT 3VW (01/31/2024 10:43 AM CDT) Only the most recent of2 resultswithin the time period is included. Narrative [facility] [address] - 01/31/2024 10:43 AM CDT Please see progress note in Epic for results. Darius Alexandra MD DIAGNOSTIC IMAGING O RDERABLES [facility] [address] * Neuraxial Block (12/18/2023 10:58 AM CDT) Narrative Haily Mckeon APRN-CRNA - 12/18/2023 10:58 AM CDT Haily Mckeon APRN-CRNA 12/18/2023 10:59 AM Neuraxial Block Note Pre-Procedure: Procedure Name: Neuraxial Block Patient Location: OR Pre-Anesthetic Checklist: Patient identified, IV Checked, Risks and benefits discussed, Surgical consent verified, Monitors and equipment, Site examined, Pre-op evaluation done, Time-out performed, Informed consent obtained, Questions answered/anesthesia questions answered and Allergies reviewed Anticoagulation/ Anti-thrombosis status confirmed? Yes Supplemental O2: room air Monitors: continuous pluse ox and BP Patient Condition: sedated, meaningful contact maintained throughout procedure Patient Sedated? Yes Procedure: Block Type: Spinal Prep: Betadine Sterile Field: mask, cap/hat, sterile established and sterile gloves Approach: midline Skin was localized? Yes Spinal Block: Needle Type: spinal needle Needle Gauge: 22 Needle Length: 90 mm Placement Site: L3-4 Number of Attempts: 2 CSF: free flow, aspiration during injection, aspiration before injection Degree of difficulty: none Procedure Tolerance: tolerated well performed while the patient was sedated Sensory Level: T8 Motor Blockade: Yes Position post procedure: supine Vital Signs: Vital signs monitored and stable throughout. See anesthesia record for details. Start Time: 12/18/2023 10:38 AM End Time: 12/18/2023 10:48 AM Total Time: 10 Staff: Anesthesia Provider: Haily Mckeon APRN-KURT - performed the procedure Bess Shannon MD GENERAL ANESTHESIA O RDERABLES * EKG 12-LEAD (11/06/2023 1:40 PM [facility]) Ventricular Rate 62 BPM [facility] Atrial Rate 62 BPM [facility] P-R Interval 274 ms [facility] QRS Duration ms 94 ms [facility] Q-T Interval ms 386 ms [facility] QTC Calculation (Bezet) 391 ms [facility] Calculated P [place] 29 degrees [facility] Calculated R [place] -44 degrees [facility] Calculated T [place] 6 degrees [facility] Interpretation EKG Sinus rhythm with 1st degree A-V block Left axis deviation Minimal voltage criteria for LVH, may be normal variant ( R in aVL ) No previous ECGs available Confirmed by PANCHITO MIMS, RADHA MUNGUIA ([id number]) on 11/06/2023 10:01:43 PM [facility] 11/06/2023 1:40 PM [facility] 11/06/2023 10:01 PM [facility] Melina Falcon DO ECG ORDERABLES [facility] * (ABNORMAL) CBC W AUTO DIFFERENTIAL (11/06/2023 1:06 PM [facility]) WBC 5.6 4.0 - 10.7 x10E9/L 11/06/2023 1:19 PM [facility] RBC Count 4.16(L) 4.30 - 5.80 x10E12/L 11/06/2023 1:19 PM [facility] Hemoglobin 13.0(L) 13.3 - 17.5 g/dL 11/06/2023 1:19 PM [facility] Hematocrit 38.2(L) 38.7 - 51.1 % 11/06/2023 1:19 PM [facility] MCV 91.8 80.0 - 98.0 fL 11/06/2023 1:19 PM [facility] MCH 31.3 26.7 - 33.6 pg 11/06/2023 1:19 PM [facility] MCHC 34.0 31.7 - 36.3 g/dL 11/06/2023 1:19 PM [facility] RDW-CV 13.1 11.3 - 14.8 % 11/06/2023 1:19 PM [facility] Platelet Count 198 150 - 420 x10E9/L 11/06/2023 1:19 PM [facility] MPV 9.3 7.8 - 11.4 fL 11/06/2023 1:19 PM [facility] Neutrophil % 60.3 41.0 - 74.0 % 11/06/2023 1:19 PM [facility] Lymphocyte % 21.4 17.0 - 47.0 % 11/06/2023 1:19 PM [facility] Monocyte % 12.9(H) 3.0 - 11.0 % 11/06/2023 1:19 PM [facility] Eosinophil % 3.9 0.0 - 7.0 % 11/06/2023 1:19 PM [facility] Basophil % 1.3 0.0 - 1.6 % 11/06/2023 1:19 PM [facility] Immature Granulocytes % 0.2 0.0 - 1.0 % 11/06/2023 1:19 PM [facility] Neutrophil Absolute 3.38 1.60 - 7.50 x10E9/L 11/06/2023 1:19 PM [facility] Lymphocyte Absolute 1.20 1.00 - 4.40 x10E9/L 11/06/2023 1:19 PM [facility] Monocyte Absolute 0.72 0.15 - 1.00 x10E9/L 11/06/2023 1:19 PM [facility] Eosinophil Absolute 0.22 0.00 - 0.60 x10E9/L 11/06/2023 1:19 PM [facility] Basophil Absolute 0.07 0.00 - 0.13 x10E9/L 11/06/2023 1:19 PM [facility] Blood BLOOD SPECIMEN / Unknown Venipuncture / Unknown 11/06/2023 1:06 PM [facility] 11/06/2023 1:16 PM [facility] Venessa Vitale TRANSFORMATION SPECIALIST-PRODUCE MANAGER LAB - HEMATOLOGY ORDERABLES [facility] [address] [place] [address] * (ABNORMAL) COMPREHENSIVE METABOLIC PANEL (11/06/2023 1:06 PM [facility]) Glucose 106(H) 70 - 105 mg/dL 11/06/2023 1:35 PM [facility] Sodium 140 136 - 145 mmol/L 11/06/2023 1:35 PM [facility] Potassium 4.5 3.5 - 5.1 mmol/L 11/06/2023 1:35 PM [facility] Chloride 110(H) 98 - 107 mmol/L 11/06/2023 1:35 PM [facility] CO2 23 22 - 29 mmol/L 11/06/2023 1:35 PM [facility] Calcium 9.1 8.4 - 10.4 mg/dL 11/06/2023 1:35 PM [facility] Anion Gap 7 6 - 16 mmol/L 11/06/2023 1:35 PM [facility] BUN 20 7 - 26 mg/dL 11/06/2023 1:35 PM [facility] Creatinine 1.08 0.72 - 1.25 mg/dL 11/06/2023 1:35 PM [facility] Alkaline Phosphatase 86 40 - 150 U/L 11/06/2023 1:35 PM [facility] ALT 37 0 - 55 U/L 11/06/2023 1:35 PM [facility] AST 22 5 - 34 U/L 11/06/2023 1:35 PM [facility] Protein Total 6.9 6.4 - 8.3 gm/dL 11/06/2023 1:35 PM [facility] Albumin 3.6 3.4 - 5.0 gm/dL 11/06/2023 1:35 PM [facility] Bilirubin Total 0.4 0.2 - 1.2 mg/dL 11/06/2023 1:35 PM [facility] eGFR by CKD-EPI 69(L) >=90 mL/min/1.7 3 m2 11/06/2023 1:35 PM [facility] Blood BLOOD SPECIMEN / Unknown Venipuncture / Unknown 11/06/2023 1:06 PM [facility] 11/06/2023 1:16 PM [facility] Venessa Vitale TRANSFORMATION SPECIALIST-PRODUCE MANAGER LAB - CHEMISTRY O RDERABLES Performing Organization Address City/State/[facility] Co de Phone Number [facility] [address] [place] [address] * DERMATOPATHOLOGY (09/10/2018 12:00 AM [facility]) Only the most recent of3 resultswithin the time period is included. Case Report Dermatopathology Report Case: [id number] Authorizing Provider: Rizwan Garland MD Collected: 09/10/2018 12:00 AM Pathologist: Karen Sterling MD Received: 09/11/2018 12:07 PM Specimens: A) - Skin, right side nose at alar groove B) - Skin, left alar groove 9 12:25 PM [facility] Final Diagnosis Specimen A. SKIN, right side nose at alar groove: INTRADERMAL MELANOCYTIC NEVUS (D22.39) Specimen B. SKIN, left alar groove: INTRADERMAL MELANOCYTIC NEVUS (D22.39) 9 12:25 PM [facility] Clinical History A-B: R/O BCC, cyst. 9 12:25 PM [facility] Gross Description Specimen A: Received is one formalin filled container labeled with the patient's name and designated right side nose at alar groove. The specimen consists of a shave biopsy (2 pieces) measuring [id number] & [id number]. Jar 0. Specimen B: Received is one formalin filled container labeled with the patient's name and designated left alar groove. The specimen consists of a shave biopsy measuring [id number]. Jar 0. 12:25 PM [facility] Microscopic Description Specimen A. SKIN, right side nose at alar groove: There are nests of cytologically bland melanocytes within the dermis that mature with depth. Specimen B. SKIN, left alar groove: There are nests of cytologically bland melanocytes within the dermis that mature with depth. 12:25 PM [facility] Disclaimer An external and internal positive and negative controls are appropriate for the histochemical, immunohistochemical and immunofluorescence stain(s) in this case (if any), except where stated explicitly. The performance characteristics of the stain(s) cited in this report were developed and its performance characteristic determined by the Dermatopathology Laboratory at [facility], directed by Dr. Tanya Ramirez. These tests need not be, and therefore are not, approved by the [place] Food and Drug Administration. The tests are used for clinical purposes. Billing Codes Specimen Charges Stain Charges 44511 13851 1 1 12:25 PM [facility] Embedded Images 12:25 PM [facility] Pathology/Cytology TISSUE SPECIMEN FROM SKIN / Unknown 09/10/2018 09/11/2018 12:07 PM [facility] Miscellaneous samples (specimen) TISSUE SPECIMEN FROM SKIN / Unknown 09/10/2018 09/11/2018 12:07 PM [facility] Rizwan Garland MD LAB - PATHOLOGY/CYTO LOGY ORDERABLES DERMATOPATHOLOGY LABORATORY [facility] - Department of Dermatology [facility], [address] [place] [address], [facility] [phone] Care Teams Manager Relationship Relationship Specialty Start Date End Date Sancho Almazan DO PCP - General Internal Medicine 09/26/23
--- OUTSIDE RECORDS SUMMARY | 2024-10-13 15:14 | XMS_ITS | Referral Summary ---
Author Organization [facility] Address [address] [address] Care Team Providers Care Poultryman Name Role Phone Kasandrayancy Sancho Mihir DO Primary Care Provider [phone] Source Comments [facility],non-owned Affiliates and Associated Physician Practices is amultiple site organization consisting of ambulatory clinics and hospital sitesin [place], [place], [place] and [place]. This disclosure is being madepursuant to the Care Everywhere program and may not contain all information available regarding this patient. Last updated 18.[facility] Allergies No known active allergies Medications * Be aware that medications may not be up to date on this document. Alwaysverify current medications with the patient. Medication Sig Dispensed Refills Start Date End Date Status TAMSULOSIN HCL PO Take 0.4 mg by mouth at bedtime Active METOPROLOL TARTRATE PO Take 50 mg by mouth 2 times daily Active amLODIPine (Norvasc) 5 MG tabletIndications :Hypertension Reasons: High Blood Pressure Disorder 08/11/2023 Active budesonide-formot woody (Symbicort) 160-4.5 MCG/ACT inhaler [place] 2 PUFFS BY MOUTH EVERY 12 HOURS NEEDED FOR SHORTNESS OF BREATH 07/02/2023 Active digoxin (Lanoxin) 0.125 MG tablet Take 1 (one) tablet by mouth once daily 06/15/2023 Active Polyethyl Glycol-Propyl Glycol (SYSTANE ULTRA OP) 1 drop by Ophthalmic route at bedtime Active fexofenadine (Beba) 180 MG tablet Take 0.5 (one-half) tablet by mouth at bedtime Active atorvastatin (Lipitor) 40 MG tablet Take 1 (one) tablet by mouth at bedtime Active fluticasone propionate (Flonase) 50 MCG/ACT nasal spray [place] 2 (two) sprays into each nostril at bedtime Active acetaminophen CR (Acetaminophen 8 Hour) 650 MG tabletIndications :Pain Take 650 mg by mouth every 8 hours as needed for Pain. Indications: Pain 12/18/2023 Active senna-docusate (Senokot-S) 8.6-50 MG tabletIndications :Constipation Take 1 tablet by mouth 2 times daily. Indications: Constipation 12/18/2023 Active Polyethyl Glycol-Propyl Glycol (SYSTANE ULTRA OP)Indications:Dr y Eye Syndrome 1 drop by Ophthalmic route at bedtime. 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 12/18/2023 Active diclofenac sodium EC (Voltaren) 75 MG tablet Take 1 (one) tablet by mouth 2 times daily as needed 12/19/2023 Active oxyCODONE, immediate release, (Roxicodone) 5 MG tabletIndications :Mod to Severe Pain Take 1 (one) tablet to 2 (two) tablets by mouth every 4 hours as needed for Pain (pain) Reasons: Mod to Severe Pain 42 tablet 01/31/2024 Active metroNIDAZOLE (Flagyl) 500 MG tablet TAKE 1 TABLET BY MOUTH EVERY 8 HOURS FOR 10 DAYS 02/04/2024 Active amoxicillin (Amoxil) 500 MG capsule Take 4 (four) capsules by mouth 1 Hour prior to Dental Appointment 4 capsule 3 04/21/2024 Active aspirin EC (Ecotrin) 81 MG tablet TAKE ONE TABLET BY MOUTH 2 TIMES A DAY FOR 42 DAYS. TAKE FOR BLOOD CLOT PREVENTION FOR 6 WEEKS 84 tablet 12/18/2023 12/17/2024 Active omeprazole (PriLOSEC) 20 MG capsule TAKE ONE CAPSULE BY MOUTH ONCE DAILY FOR 42 DAYS 42 capsule 12/18/2023 12/17/2024 Active celecoxib (CeleBREX) 100 MG capsule TAKE ONE CAPSULE BY MOUTH 2 TIMES A DAY FOR 42 DAYS 84 capsule 12/18/2023 12/17/2024 Active Active Problems Problem Noted Date Diagnosed [...] and heating? Not hard at all 12/19/2023 [facility] - [...] place to sleep or slept in a alf (including now)? No 12/19/2023 Sex and Gender [...] Mass Index 30.42 12/20/2023 2:42 PM CDT Functional Status Functional Status Response Date of Assess ment Is person deaf or have serious hearing difficult y? No 12/18/2023 Is person blind or have serious difficulty seein g? No 12/18/2023 Does person have serious dif ficulty walking/climbing stairs? No 12/18/2023 Does person have difficulty dressing/bathing? No 12/18/2023 Does person have difficulty doing errands alone? No 12/18/2023 Cognitive Status Response Date of Assessm ent Does person have difficulty concentrating/remembering/making decisions? No 12/18/2023 Plan of Treatment Not on file Medical Devices Implanted Type Area Artillery Maintenance Supervisor Device Identifier Shelf Expiration Date Model / Serial / Lot Cmnt Bone Plc R 40gm Grn Implanted:Qty: 2 on 12/18/2023 by Darius Alexandra MD at [facility] Left: Knee [employer] 04/01/2026 [id number] / / [id number] Cmpnt Fem Kn Lt Cr Cmnt Prm Vngrd Intlk 70 Mm Implanted:Qty: 1 on 12/18/2023 by Darius Alexandra MD at [facility] Left: Knee [employer] 09/11/2033 [id number] / / [id number] Cmpnt Ptlr Std 31mm 3 Pg Kn Ser A Implanted:Qty: 1 on 12/18/2023 by Darius Alexandra MD at [facility] Left: Knee [employer] 09/13/2028 [id number] / / [id number] Tray Tib 79mm Kn Cocr I Beam Implanted:Qty: 1 on 12/18/2023 by Darius Alexandra MD at [facility] Left: Knee [employer] 10/08/2033 [id number] / / [id number] Brng 70f00oh Vngrd Vivacit-E Kn Ant Stab Implanted:Qty: 1 on 12/18/2023 by Darius Alexandra MD at [facility] Left: Knee Juan Anotnio [employer] 04/08/2027 [id number] / / [id number] Directives Documents on File Type Date Recorded Patient Cloth Measurer Expl anation Adv Directive/Living Will/POA 11/07/2023 7:17 PM * Full Code (Latest Code Status on File) Date Activated Date Inactivated Comments 12/18/2023 3:50 PM 12/19/2023 2:41 PM Care Teams Poultryman Relationship Specialty Start Date End Date Sancho Almazan DO PCP - General Internal Medicine 09/26/23
--- OUTSIDE RECORDS SUMMARY | 2024-10-13 15:14 | XMS_ITS | Encounter Summary ---
Author Organization [facility] Address [address] [place] [address] Care Team Providers Care Mounter Brass Wind Instruments Name Role Phone Sancho Almazan DO Primary Care Provider [phone] Encounter Details Date Type Department Care Team (Late st Contact Info) Description 09/11/2018 Lab Requisition [facility] Care DermPath Lab [address] [facility] [address] [facility] [place] [address] [place] [address] Social History Tobacco Use Types Packs/Day Years Used Date Smoking Tobacco: Former Sex and Gender Information Value Date Recorded Sex Assigned at Not on file Gender Identity Not on file Sexual Orientation Not on file documented as of this encounter Plan of Treatment Not on file documented as of this encounter Procedures Procedure Name Priority Date/Time Associated Diagnosis Comments DERMATOPATHOLOGY Routine 09/10/2018 12:0 0 AM NETWORKING TECHNICIAN documented in this encounter Results * DERMATOPATHOLOGY (09/10/2018 12:00 AM NETWORKING TECHNICIAN) Case Report Dermatopathology Report Case: [id number] Authorizing Provider: Rizwan Garland MD Collected: 09/10/2018 12:00 AM Pathologist: Karen Sterling MD Received: 09/11/2018 12:07 PM Specimens: A) - Skin, right side nose at alar groove B) - Skin, left alar groove 12:25 PM NETWORKING TECHNICIAN DERMATOPATHOLOGY LABORATORY Final Diagnosis Specimen A. SKIN, right side nose at alar groove: INTRADERMAL MELANOCYTIC NEVUS (D22.39) Specimen B. SKIN, left alar groove: INTRADERMAL MELANOCYTIC NEVUS (D22.39) 12:25 PM [facility] DERMATOPATHOLOGY LABORATORY Clinical History A-B: R/O BCC, cyst. 12:25 PM NETWORKING TECHNICIAN DERMATOPATHOLOGY LABORATORY Gross Description Specimen A: Received is one formalin filled container labeled with the patient's name and designated right side nose at alar groove. The specimen consists of a shave biopsy (2 pieces) measuring [id number] & [id number]. Jar 0. Specimen B: Received is one formalin filled container labeled with the patient's name and designated left alar groove. The specimen consists of a shave biopsy measuring [id number]. Jar 0. 12:25 PM NETWORKING TECHNICIAN DERMATOPATHOLOGY LABORATORY Microscopic Description Specimen A. SKIN, right side nose at alar groove: There are nests of cytologically bland melanocytes within the dermis that mature with depth. Specimen B. SKIN, left alar groove: There are nests of cytologically bland melanocytes within the dermis that mature with depth. 12:25 PM NETWORKING TECHNICIAN DERMATOPATHOLOGY LABORATORY Disclaimer An external and internal positive and negative controls are appropriate for the histochemical, immunohistochemical and immunofluorescence stain(s) in this case (if any), except where stated explicitly. The performance characteristics of the stain(s) cited in this report were developed and its performance characteristic determined by the Dermatopathology Laboratory at [facility], directed by Dr. Tanya Ramirez. These tests need not be, and therefore are not, approved by the [place] Food and Drug Administration. The tests are used for clinical purposes. Billing Codes Specimen Charges Stain Charges 25806 06258 1 1 12:25 PM NETWORKING TECHNICIAN DERMATOPATHOLOGY LABORATORY Embedded Images 12:25 PM NETWORKING TECHNICIAN DERMATOPATHOLOGY LABORATORY Pathology/Cytology TISSUE SPECIMEN FROM SKIN / Unknown 09/10/2018 09/11/2018 12:07 PM NETWORKING TECHNICIAN Miscellaneous samples (specimen) TISSUE SPECIMEN FROM SKIN / Unknown 09/10/2018 09/11/2018 12:07 PM NETWORKING TECHNICIAN Rizwan Garland MD LAB - PATHOLOGY/CYTO LOGY ORDERABLES DERMATOPATHOLOGY LABORATORY [facility] - Department of Dermatology [address] [place] [address], 5th Floor Lab B [address] [phone] documented in this encounter Visit Diagnoses Not on filedocumented in this encounter Care Teams Mounter Brass Wind Instruments Relationship Specialty Start Date End Date Sancho Almazan DO PCP - General Internal Medicine 09/26/23 documented as of this encounter
--- OUTSIDE RECORDS SUMMARY | 2024-10-13 15:14 | XMS_ITS | Clinical Summary ---
Author Organization [facility] Address [address] [place] [place] [address] Care Team Providers Care Marine Engine Driver Name Role Phone KasandraSancho haines Mihir DO Primary Care Provider [phone] Source Comments [facility],non-owned Affiliates and Associated Physician Practices is amultiple site organization consisting of ambulatory clinics and hospital sitesin [place], [place], [place] and [place]. This disclosure is being madepursuant to the Care Everywhere program and may not contain all information available regarding this patient. Last updated 18.[facility] Allergies No known active allergies Medications * [...] fluticasone propionate (Flonase) 50 MCG/ACT nasal spray [place] 2 (two) sprays into each nostril at [...] and heating? Not hard at all 12/19/2023 [facility] - Occupational Stress [...] place to sleep or slept in a fpc (including now)? No 12/19/2023 Sex and Gender [...] Mass Index 30.42 12/20/2023 2:42 PM CDT Plan of Treatment Health Maintenance Due Date Last Done Comments MEDICARE AWV 12 MONTHS 1941 DTAP/TDAP/TD VACCINES (1 - Tdap) 1960 PNEUMOCOCCAL VACCINE 50+ (1 of 1 - PCV) 1991 ZOSTER VACCINE (1 of 2) 1991 Respiratory Syncytial Virus (RSV) Vaccine Pt: or over 60 yrs (1 - 1-dose 75+ series) 2016 COVID-19 VACCINE ( - 2023-2 5 season) 2024 INFLUENZA VACCINE (#1) 2024 DEPRESSION SCREENING 09/02/2024 HEPATITIS B VACCINE Aged Out No longe r eligible based on patient's age to complete this topic HIB VACCINE Aged Out No longer eligi ble based on patient's age to complete this topic HPV VACCINE Aged Out No longer eligi ble based on patient's age to complete this topic MENINGOCOCCAL (Group B) VACCINE Aged Out No longer eligible based on patient's age to complete this topic MENINGOCOCCAL VACCINE Aged Out No tiera gabe eligible based on patient's age to complete this topic Medical Devices Implanted Type Area Management Coordinator Device Identifier Shelf Expiration Date Model / Serial / Lot Cmnt Bone Plc R 40gm Grn Implanted:Qty: 2 on 12/18/2023 by Darius Alexandra MD at [facility] Left: Knee [employer] 04/01/2026 [id number] / / [id number] Cmpnt Fem Kn Lt Cr Cmnt Prm Vngrd Intlk 70 Mm Implanted:Qty: 1 on 12/18/2023 by Darius Alexandra MD at [facility] Left: Knee [employer] 09/11/2033 [id number] / / [id number] Cmpnt Ptlr Std 31mm 3 Pg Kn Ser A Implanted:Qty: 1 on 12/18/2023 by Darius Alexandra MD at [facility] Left: Knee [employer] 09/13/2028 [id number] / / [id number] Tray Tib 79mm Kn Cocr I Beam Implanted:Qty: 1 on 12/18/2023 by Darius Alexandra MD at [facility] Left: Knee [employer] 10/08/2033 [id number] / / [id number] Brng 62u84hy Vngrd Vivacit-E Kn Ant Stab Implanted:Qty: 1 on 12/18/2023 by Darius Alexandra MD at [facility] Left: Knee [employer] 04/08/2027 [id number] / / [id number] Advance Directives Documents on File Type Date Recorded Patient Laborer Pipeline Expl anation Adv Directive/Living Will/POA 11/07/2023 7:17 PM * Full Code (Latest Code Status on File) Date Activated Date Inactivated Comments 12/18/2023 3:50 PM 12/19/2023 2:41 PM Care Teams Marine Engine Driver Relationship Specialty Start Date End Date Sancho Almazan DO PCP - General Internal Medicine 09/26/23
--- OUTSIDE RECORDS SUMMARY | 2024-10-13 15:14 | XMS_ITS | Referral Summary ---
Author Organization [facility] Address [address] [place] [phone] Care Team Providers Care Dial Mounter Name Role Phone Sancho Almazan DO Primary Care Provider [phone] Encounters Date Type Department Care Team Description 08/10/2024 8:30 AM CERTIFIED GREEN BUILDING ENGINEER Office Visit [place] [facility] Operator Helper at [address] [place] [address] Lesley Mak NP Paroxysmal SVT (supraventricular tachycardia) (HCC) (Primary Dx); Hyperlipidemia, unspecified hyperlipidemia type; Atrial fibrillation, unspecified type (HCC); Dyslipidemia from Last 3 Months Allergies No known active allergies Medications ezetimibe [...] 05/28/2022 COVID 06/14/2021 Paroxysmal SVT (supraventricular tachycardia) Social History Tobacco Use Types Packs/Day Years Used Date Smoking Tobacco: Never Smokeless Tobacco: Never Tobacco Cessation:Counseling Given: Not Answered Sex and Gender Information Value Date Recorded Sex Assigned at Not on file Legal Sex Male 2:18 PM CERTIFIED GREEN BUILDING ENGINEER Gender Identity Not on file Sexual Orientation Not on file Last Filed Vital Signs Vital Sign Reading Time Taken Comments Blood Pressure 136/78 08/10/2024 8:34 AM CERTIFIED GREEN BUILDING ENGINEER Pulse 62 08/10/2024 8:34 AM CERTIFIED GREEN BUILDING ENGINEER Temperature 36.5 C (97.7 F) 09/07/2023 9:02 AM CERTIFIED GREEN BUILDING ENGINEER Respiratory Rate 20 09/07/2023 9:02 AM CERTIFIED GREEN BUILDING ENGINEER Oxygen Saturation 97% 09/07/2023 9:02 AM CERTIFIED GREEN BUILDING ENGINEER Inhaled Oxygen Concentration - - Weight 94.8 kg (209 lb) 08/10/2024 8:34 AM CERTIFIED GREEN BUILDING ENGINEER Height 175.3 cm (5' 9 ) 08/10/2024 8:34 AM CERTIFIED GREEN BUILDING ENGINEER Body Mass Index 30.86 08/10/2024 8:34 AM CERTIFIED GREEN BUILDING ENGINEER Plan of Treatment Not on file Insurance MEDICARE [facility] MEDICARE SUPPLEMENT INSURANCE KIRAN BIRD [id number] MEDICARE [employer] MEDICARE SUPPLEMENT INSURANCE Care Teams Dial Mounter Relationship Specialty Start Date End Date Sancho Almazan DO PCP - General Internal Medicine 05/16/20
[2024-10-13 20:21] LABS: Add Urine Microscopic? NO; Appearance Urine Clear (Clear); Bilirubin Urine Negative (Negative); Blood Urine Negative (Negative); Color Urine Yellow (Yellow); Glucose Urine UA Negative (Negative); Ketones Urine Negative (Negative); Leukocyte Esterase Ur Negative LEU/UL (Negative); Nitrate Urine Negative (Negative); Protein Urine Negative (Negative); Specific Grav Ur 1.019 (1.001-1.035); pH Urine 6.5 (5.0-9.0)
== END 2024-10-13 14:27 | disposition home or self-care (01) ==
LOC: ANHGOSHLAB 14:27
PROVIDERS: PCP Internal Medicine; Visit Provider Internal Medicine
DX: R30.0 Dysuria (principal)
CPT/HCPCS: 81003

== ENCOUNTER 2024-11-04 08:47 | Outpatient (CLI) | payer MEDICARE, SELFPAY ==
--- NOTE | ~2024-11-04 | CT_ITS ---
EXAMINATION: CT abdomen pelvis w con DATE: 11/04/2024 09:16 INDICATION: Gross hematuria. TECHNIQUE: Computed tomography (CT) of the abdomen and pelvis was performed with 100 mL Omnipaque 350 intravenous contrast. Automated exposure control and iterative reconstruction technique were employe d. The dose-length product was 867.16 mGy-cm. COMPARISON: CT abdomen and pelvis 12/26/2023 FINDINGS: The visualized portions of lung bases demonstrate mild atelectasis. No pleural effusion. Th e heart size is normal. There are coronary artery calcifications. No pericardial effusion. There is a 10 mm cyst in the liver. There is a gallstone in the gallbladder, which is normal in size. The splee n, pancreas, adrenal glands, and right kidney are normal. There is a 7 mm cyst in left kidney. The ur eters are normal. The prostate is severely enlarged. There is diffuse bladder wall thickening, likely secondary to chronic outlet obstruction. There is diverticulosis of the colon without evidence of di verticulitis. There are no dilated loops of bowel. The appendix is normal. There are no pathologicall y enlarged lymph nodes. There is no free intraperitoneal fluid. There is a right inguinal hernia cont aining fat. There is severe thoracic and lumbar spondylosis. IMPRESSION: 1. No specific etiology for hematuria. Reviewed, dictated and finalized at location A. RMATION AND DATA ARCHITECT ANALYST
[2024-11-04 09:08] LABS: Estimated Glomerular Filt Rate > 60
--- OUTSIDE RECORDS SUMMARY | 2024-11-04 09:12 | XMS_ITS | Patient Health Summary ---
Author Organization [facility] Address [address] [place] [address] Care Team Providers Care Blast Furnace Checker Name Role Phone Kasandrayancy Sancho Mihir DO Primary Care Provider [phone] Note from [facility],non-owned Affiliates and Associated Physician Practices is amultiple site organization consisting of ambulatory clinics and hospital sitesin [place], [place] and [place]. This disclosure is being madepursuant to the Care Everywhere program and may not contain all information available regarding this patient. Last updated 18.[facility] Allergies No known active allergies Medications * [...] fluticasone propionate (Flonase) 50 MCG/ACT nasal spray [place] 2 (two) sprays into each nostril at [...] and heating? Not hard at all 12/19/2023 [facility] - Occupational [...] place to sleep or slept in a prison (including now)? No 12/19/2023 Sex and Gender [...] PM CDT Medical Devices Implanted Type Area Waiter/Waitress Economy Class Device Identifier Shelf Expiration Date Model / Serial / Lot Cmnt Bone Plc R 40gm Grn Implanted:Qty: 2 on 12/18/2023 by Darius Alexandra MD at [facility] Left: Knee [employer] 04/01/2026 [id number] / / [id number] Cmpnt Fem Kn Lt Cr Cmnt Prm Vngrd Intlk 70 Mm Implanted:Qty: 1 on 12/18/2023 by Darius Alexandra MD at [facility] Left: Knee [employer] 09/11/2033 [id number] / / [id number] Cmpnt Ptlr Std 31mm 3 Pg Kn Ser A Implanted:Qty: 1 on 12/18/2023 by Darius Alexandra MD at [facility] Left: Knee [employer] 09/13/2028 [id number] / / [id number] Tray Tib 79mm Kn Cocr I Beam Implanted:Qty: 1 on 12/18/2023 by Darius Alexandra MD at [facility] Left: Knee [employer] 10/08/2033 [id number] / / [id number] Brng [id number] Vngrd Vivacit-E Kn Ant Stab Implanted:Qty: 1 on 12/18/2023 by Darius Alexandra MD at [facility] Left: Knee [employer] 04/08/2027 [id number] / / [id number] Procedures * XR KNEE LEFT 3VW(Performed 01/31/2024) Performed for Aftercare following left knee joint replacement surgery * NEURAXIAL BLOCK(Performed 12/18/2023) * NV TOTAL KNEE REPLACEMENT(Performed 12/18/2023) * EKG 12-LEAD(Performed [...] resultswithin the time period is included. Narrative [facility] [address] - 01/31/2024 10:43 AM CDT Please see progress note in Epic for results. Darius Alexandra MD DIAGNOSTIC IMAGING O RDERABLES [facility] [address] * Neuraxial Block (12/18/2023 10:58 [...] RDERABLES * EKG 12-LEAD (11/06/2023 1:40 PM VETERINARY MILK SPECIALIST) Ventricular Rate 62 BPM [facility] Atrial Rate 62 BPM [facility] P-R Interval 274 ms [facility] QRS Duration ms 94 ms [facility] Q-T Interval ms 386 ms [facility] QTC Calculation (Bezet) 391 ms [facility] Calculated P [place] 29 degrees [facility] Calculated R [place] -44 degrees [facility] Calculated T [place] 6 degrees [facility] Interpretation EKG Sinus rhythm with 1st degree A-V block Left axis deviation Minimal voltage criteria for LVH, may be normal variant ( R in aVL ) No previous ECGs available Confirmed by PANCHITO MIMS, RADHA MUNGUIA ([id number]) on 11/06/2023 10:01:43 PM [facility] 11/06/2023 1:40 PM VETERINARY MILK SPECIALIST 11/06/2023 10:01 PM VETERINARY MILK SPECIALIST Melina Falcon DO ECG ORDERABLES [facility] * (ABNORMAL) CBC W AUTO DIFFERENTIAL (11/06/2023 1:06 PM VETERINARY MILK SPECIALIST) WBC 5.6 4.0 - 10.7 x10E9/L 11/06/2023 1:19 PM [facility] RBC Count 4.16(L) 4.30 - 5.80 x10E12/L 11/06/2023 1:19 PM [facility] Hemoglobin 13.0(L) 13.3 - 17.5 g/dL 11/06/2023 1:19 PM [facility] Hematocrit 38.2(L) 38.7 - 51.1 % 11/06/2023 1:19 PM [facility] MCV 91.8 80.0 - 98.0 fL 11/06/2023 1:19 PM [facility] MCH 31.3 26.7 - 33.6 pg 11/06/2023 1:19 PM [facility] MCHC 34.0 31.7 - 36.3 g/dL 11/06/2023 1:19 PM [facility] RDW-CV 13.1 11.3 - 14.8 % 11/06/2023 1:19 PM [facility] Platelet Count 198 150 - 420 x10E9/L 11/06/2023 1:19 PM [facility] MPV 9.3 7.8 - 11.4 fL 11/06/2023 1:19 PM [facility] Neutrophil % 60.3 41.0 - 74.0 % 11/06/2023 1:19 PM [facility] Lymphocyte % 21.4 17.0 - 47.0 % 11/06/2023 1:19 PM [facility] Monocyte % 12.9(H) 3.0 - 11.0 % 11/06/2023 1:19 PM [facility] Eosinophil % 3.9 0.0 - 7.0 % 11/06/2023 1:19 PM [facility] Basophil % 1.3 0.0 - 1.6 % 11/06/2023 1:19 PM [facility] Immature Granulocytes % 0.2 0.0 - 1.0 % 11/06/2023 1:19 PM [facility] Neutrophil Absolute 3.38 1.60 - 7.50 x10E9/L 11/06/2023 1:19 PM [facility] Lymphocyte Absolute 1.20 1.00 - 4.40 x10E9/L 11/06/2023 1:19 PM [facility] Monocyte Absolute 0.72 0.15 - 1.00 x10E9/L 11/06/2023 1:19 PM VETERINARY MILK SPECIALIST [facility] Eosinophil Absolute 0.22 0.00 - 0.60 x10E9/L 11/06/2023 1:19 PM [facility] Basophil Absolute 0.07 0.00 - 0.13 x10E9/L 11/06/2023 1:19 PM [facility] Blood BLOOD SPECIMEN / Unknown Venipuncture / Unknown 11/06/2023 1:06 PM VETERINARY MILK SPECIALIST 11/06/2023 1:16 PM VETERINARY MILK SPECIALIST Venessa Vitale COOKIE BREAKER-MANAGER HEAV[facility] EQUIPMENT LAB - HEMATOLOGY ORDERABLES [facility] [address] [place] [address] * (ABNORMAL) COMPREHENSIVE METABOLIC PANEL (11/06/2023 1:06 PM VETERINARY MILK SPECIALIST) Glucose 106(H) 70 - 105 mg/dL 11/06/2023 1:35 PM [facility] Sodium 140 136 - 145 mmol/L 11/06/2023 1:35 PM [facility] Potassium 4.5 3.5 - 5.1 mmol/L 11/06/2023 1:35 PM [facility] Chloride 110(H) 98 - 107 mmol/L 11/06/2023 1:35 PM [facility] CO2 23 22 - 29 mmol/L 11/06/2023 1:35 PM [facility] Calcium 9.1 8.4 - 10.4 mg/dL 11/06/2023 1:35 PM [facility] Anion Gap 7 6 - 16 mmol/L 11/06/2023 1:35 PM [facility] BUN 20 7 - 26 mg/dL 11/06/2023 1:35 PM [facility] Creatinine 1.08 0.72 - 1.25 mg/dL 11/06/2023 1:35 PM [facility] Alkaline Phosphatase 86 40 - 150 U/L 11/06/2023 1:35 PM [facility] ALT 37 0 - 55 U/L 11/06/2023 1:35 PM VETERINARY MILK SPECIALIST [facility] AST 22 5 - 34 U/L 11/06/2023 1:35 PM VETERINARY MILK SPECIALIST [facility] Protein Total 6.9 6.4 - 8.3 gm/dL 11/06/2023 1:35 PM VETERINARY MILK SPECIALIST [facility] Albumin 3.6 3.4 - 5.0 gm/dL 11/06/2023 1:35 PM VETERINARY MILK SPECIALIST [facility] Bilirubin Total 0.4 0.2 - 1.2 mg/dL 11/06/2023 1:35 PM VETERINARY MILK SPECIALIST [facility] eGFR by CKD-EPI 69(L) >=90 mL/min/1.7 3 m2 11/06/2023 1:35 PM VETERINARY MILK SPECIALIST [facility] Blood BLOOD SPECIMEN / Unknown Venipuncture / Unknown 11/06/2023 1:06 PM VETERINARY MILK SPECIALIST 11/06/2023 1:16 PM VETERINARY MILK SPECIALIST Venessa Vitale COOKIE BREAKER-MANAGER [facility] LAB - CHEMISTRY O RDERABLES Performing Organization Address City/State/[facility] Co de Phone Number [facility] [address] [place] [address] * DERMATOPATHOLOGY (09/10/2018 12:00 AM VETERINARY MILK SPECIALIST) Only the most recent of3 resultswithin the time period is included. Case Report Dermatopathology Report Case: [id number] Authorizing Provider: Rizwan Garland MD Collected: 09/10/2018 12:00 AM Pathologist: Karen Sterling MD Received: 09/11/2018 12:07 PM Specimens: A) - Skin, right side nose at alar groove B) - Skin, left alar groove 9 12:25 PM VETERINARY MILK SPECIALIST DERMATOPATHOLOGY LABORATORY Final Diagnosis Specimen A. SKIN, right side nose at alar groove: INTRADERMAL MELANOCYTIC NEVUS (D22.39) Specimen B. SKIN, left alar groove: INTRADERMAL MELANOCYTIC NEVUS (D22.39) 9 12:25 PM VETERINARY MILK SPECIALIST DERMATOPATHOLOGY LABORATORY Clinical History A-B: R/O BCC, cyst. 9 12:25 PM [facility] DERMATOPATHOLOGY [facility]ORATORY Gross Description Specimen A: Received is one formalin filled container labeled with the patient's name and designated right side nose at alar groove. The specimen consists of a shave biopsy (2 pieces) measuring [id number] & [id number]. Jar 0. Specimen B: Received is one formalin filled container labeled with the patient's name and designated left alar groove. The specimen consists of a shave biopsy measuring [id number]. Jar 0. 12:25 PM [facility] DERMATOPATHOLOGY LABORATORY Microscopic Description Specimen A. SKIN, right side nose at alar groove: There are nests of cytologically bland melanocytes within the dermis that mature with depth. Specimen B. SKIN, left alar groove: There are nests of cytologically bland melanocytes within the dermis that mature with depth. 12:25 PM [facility] DERMATOPATHOLOGY LABORATORY Disclaimer An external and internal positive and negative controls are appropriate for the histochemical, immunohistochemical and immunofluorescence stain(s) in this case (if any), except where stated explicitly. The performance characteristics of the stain(s) cited in this report were developed and its performance characteristic determined by the Dermatopathology Laboratory at [facility], directed by Dr. Tanya Ramirez. These tests need not be, and therefore are not, approved by the [place] Food and Drug Administration. The tests are used for clinical purposes. Billing Codes Specimen Charges Stain Charges 08607 [id number] 1 1 12:25 PM [facility] DERMATOPATHOLOGY LABORATORY Embedded Images 12:25 PM [facility]ERMATOP[facility]Y [facility]ORY Pathology/Cytology TISSUE SPECIMEN FROM SKIN / Unknown 09/10/2018 09/11/2018 12:07 PM VETERINARY MILK SPECIALIST Miscellaneous samples (specimen) TISSUE SPECIMEN FROM SKIN / Unknown 09/10/2018 09/11/2018 12:07 PM VETERINARY MILK SPECIALIST Rizwan Garland MD LAB - PATHOLOGY/CYTO LOGY ORDERABLES DERMATOPATHOLOGY LABORATORY [facility] - Department of Dermatology [facility] [facility], 5th [place] [address], [facility] [phone] Care Teams Blast Furnace Checker Relationship Specialty Start Date End Date Sancho Almazan DO PCP - General Internal Medicine 09/26/23
--- OUTSIDE RECORDS SUMMARY | 2024-11-04 09:12 | XMS_ITS | Referral Summary ---
Author Organization [facility] Medical [facility] Building [facility] Address [address] [place] [address] Care Team Providers Care Healthcare Market Consultant Name Role Phone Sancho Almazan DO Primary Care Provider [phone] Encounters Date Type Department Care Team Description 08/10/2024 8:30 AM AIR FORCE PILOT Office Visit [facility] Patient Safety Attendant at [address] [place] [address] Lesley Mak NP Paroxysmal SVT (supraventricular tachycardia) (Primary Dx); Hyperlipidemia, unspecified hyperlipidemia type; Atrial [...] on file Legal Sex Male 2:18 PM AIR FORCE PILOT Gender Identity Not on file Sexual Orientation Not on file Last Filed Vital Signs Vital Sign Reading Time Taken Comments Blood Pressure 136/78 08/10/2024 8:34 AM AIR FORCE PILOT Pulse 62 08/10/2024 8:34 AM AIR FORCE PILOT Temperature 36.5 C (97.7 F) 09/07/2023 9:02 AM AIR FORCE PILOT Respiratory Rate 20 09/07/2023 9:02 AM AIR FORCE PILOT Oxygen Saturation 97% 09/07/2023 9:02 AM AIR FORCE PILOT Inhaled Oxygen Concentration - - Weight 94.8 kg (209 lb) 08/10/2024 8:34 AM AIR FORCE PILOT Height 175.3 cm (5' 9 ) 08/10/2024 8:34 AM AIR FORCE PILOT Body Mass Index 30.86 08/10/2024 8:34 AM AIR FORCE PILOT Plan of Treatment Not on file Insurance MEDICARE [facility] MEDICARE SUPPLEMENT INSURANCE KIRAN BIRD [id number] MEDICARE [facility]PPLE[facility]UR[facility] Care Teams Healthcare Market Consultant Relationship Specialty Start Date End Date Sancho Amlazan DO PCP - General Internal Medicine 05/16/20
--- OUTSIDE RECORDS SUMMARY | 2024-11-04 09:12 | XMS_ITS | Encounter Summary ---
Author Organization [facility] Address [address] [facility] [place] [address] Care Team Providers Care Delivery Assistant Name Role Phone Sancho Almazan DO Primary Care Provider [phone] Encounter Details Date Type Department Care Team (Late st Contact Info) Description 12/18/2017 Lab Requisition [facility] Care DermPath Lab [address] [place] [address] Rizwan Garland [place] [address] Social History Tobacco Use Types [...] AM CDT) Case Report Dermatopathology Report Case: [id number] Authorizing Provider: Rizwan Garland MD Collected: 12/17/2017 [...] (C44.311) PRESENT AT MARGIN 2:[address] [facility] DERMATOPATHOLOGY LABORATORY Clinical History A: R/O BCC. Check margins. B: R/O scar. Check margins. 2:[address] [facility] DERMATOPATHOLOGY LABORATORY Gross Description Specimen: A: Received is one formalin filled container labeled with the patient's name and designated nasal bridge midline. The specimen consists of a shave biopsy measuring [id number]. The margin is inked green. Jar 0. Specimen: B: Received is one formalin filled container labeled with the patient's name and designated right nasal bridge. The specimen consists of a shave biopsy (2 pieces) measuring [id number] & [id number]. The margins are inked green. Jar 0. 2:[address] [facility] DERMATOPATHOLOGY LABORATORY Microscopic Description Specimen A. [...] characteristic determined by the Dermatopathology Laboratory at [facility]. These tests need not be, and therefore are not, approved by the [place] Food and Drug Administration. The tests are used for clinical purposes. Billing Codes Specimen Charges Stain Charges 31271 51316 1 1 2:16 PM CDT DERMATOPATHOLOGY LABORATORY Embedded Images 2:16 PM CDT DERMATOPATHOLOGY LABORATORY Pathology/Cytology TISSUE SPECIMEN FROM SKIN / Unknown 12/17/2017 12/18/2017 12:42 PM CDT Miscellaneous samples (specimen) TISSUE SPECIMEN FROM SKIN / Unknown 12/17/2017 12/18/2017 12:42 PM CDT Rizwan Garland MD LAB - PATHOLOGY/CYTO LOGY ORDERABLES DERMATOPATHOLOGY LABORATORY [facility] - Department of Dermatology [address] [place] [address], 5th Floor Lab [address] [phone] documented in this encounter Visit Diagnoses Not on filedocumented in this encounter Care Teams Delivery Assistant Relationship Specialty Start Date End Date Sancho Almazan DO PCP - General Internal Medicine 09/26/23 documented as of this encounter
--- OUTSIDE RECORDS SUMMARY | 2024-11-04 09:12 | XMS_ITS | Clinical Summary ---
Author Organization [facility] Medical Office Building A Address [address] [place] [address] Care Team Providers Care Polyethylene Bag Machine Operator Name Role Phone Sancho Almazan DO Primary Care Provider [phone] Allergies No known active allergies Medications ezetimibe [...] Department Care Team Description 08/10/2024 8:30 AM LOADER TECHNICIAN Office Visit [place] [facility] at [address] [address] Lesley Mak NP Paroxysmal SVT (supraventricular tachycardia) (Primary Dx); Hyperlipidemia, unspecified hyperlipidemia type; Atrial fibrillation, unspecified type (HCC); Dyslipidemia from Last 3 Months Surgical History Surgery Date Site/Laterality Comments REPLACEMENT TOTAL KNEE Right SKIN CANCER EXCISION Medical History Medical History Date Comments Hypertension Atrial fibrillation with RVR (HCC) Asthma Arthritis Enlarged prostate Social History Tobacco Use Types Packs/Day Years Used Date Smoking Tobacco: Never Smokeless Tobacco: Never Tobacco Cessation:Counseling Given: Not Answered Sex and Gender Information Value Date Recorded Sex Assigned at Not on file Legal Sex Male 2:18 PM LOADER TECHNICIAN Gender Identity Not on file Sexual Orientation Not on file Obstetrics History Last Filed Vital Signs Vital Sign Reading Time Taken Comments Blood Pressure 136/78 08/10/2024 8:34 AM LOADER TECHNICIAN Pulse 62 08/10/2024 8:34 AM LOADER TECHNICIAN Temperature 36.5 C (97.7 F) 09/07/2023 9:02 AM LOADER TECHNICIAN Respiratory Rate 20 09/07/2023 9:02 AM LOADER TECHNICIAN Oxygen Saturation 97% 09/07/2023 9:02 AM LOADER TECHNICIAN Inhaled Oxygen Concentration - - Weight 94.8 kg (209 lb) 08/10/2024 8:34 AM LOADER TECHNICIAN Height 175.3 cm (5' 9 ) 08/10/2024 8:34 AM LOADER TECHNICIAN Body Mass Index 30.86 08/10/2024 8:34 AM LOADER TECHNICIAN Plan of Treatment Health Maintenance Due Date Last Done Comments Depression Screening 1941 DTaP/Tdap/Td Vaccine (1 - Tdap) 1952 Hepatitis B Screening 1959 Zoster Vaccine (1 of 2) 1991 Well Visit 65+ 2006 Fall Risk Assessment 06/15/2022 06/15/2021 Influenza Vaccine (#1) 2024 9, 06/05/2018, 05/20/2017, Additional history exists Pneumococcal vaccine 65+ Completed 06/03/2019, 01/02 Insurance MEDICARE [facility] MEDICARE SUPPLEMENT INSURANCE MEDICARE [facility] MEDICARE SUPPLEMENT INSURANCE Care Teams Polyethylene Bag Machine Operator Relationship Specialty Start Date End Date Sancho Almazan DO PCP - General Internal Medicine 05/16/20
--- OUTSIDE RECORDS SUMMARY | 2024-11-04 09:12 | XMS_ITS | Clinical Summary ---
Author Organization [facility] Address [address] [place] [address] Care Team Providers Care Hygiene Coordinator Name Role Phone KasandraSancho haines Mihir DO Primary Care Provider [phone] Source Comments [facility],non-owned Affiliates and Associated Physician Practices is amultiple site organization consisting of ambulatory clinics and hospital sitesin [place], [place], [place] and [place]. This disclosure is being madepursuant to the Care Everywhere program and may not contain all information available regarding this patient. Last updated 18.[facility] Allergies No known active allergies Medications * [...] fluticasone propionate (Flonase) 50 MCG/ACT nasal spray [place] 2 (two) sprays into each nostril at [...] and heating? Not hard at all 12/19/2023 [facility] - Occupational [...] place to sleep or slept in a retirement (including now)? No 12/19/2023 Sex and Gender [...] this topic Medical Devices Implanted Type Area Seed Cleaner Operator Device Identifier Shelf Expiration Date Model / Serial / Lot Cmnt Bone Plc R 40gm Grn Implanted:Qty: 2 on 12/18/2023 by Darius Alexandra MD at [facility] Left: Knee [employer] 04/01/2026 [id number] / / [id number] Cmpnt Fem Kn Lt Cr Cmnt Prm Vngrd Intlk 70 Mm Implanted:Qty: 1 on 12/18/2023 by Darius Alexandra MD at [facility] Left: Knee [employer] 09/11/2033 [id number] / / [id number] Cmpnt Ptlr Std 31mm 3 Pg Kn Ser A Implanted:Qty: 1 on 12/18/2023 by Darius Alexandra MD at [facility] Left: Knee [employer] 09/13/2028 [id number] / / [id number] Tray Tib 79mm Kn Cocr I Beam Implanted:Qty: 1 on 12/18/2023 by Darius Alexandra MD at [facility] Left: Knee [employer] 10/08/2033 [id number] / / [id number] Brng [id number] Vngrd Vivacit-E Kn Ant Stab Implanted:Qty: 1 on 12/18/2023 by Darius Alexandra MD at [facility] Left: Knee [employer] 04/08/2027 [id number] / / [id number] Advance Directives Documents on File Type Date Recorded Patient Telehealth Nurse Educator Expl anation Adv Directive/Living Will/POA 11/07/2023 7:17 PM * Full Code (Latest Code Status on File) Date Activated Date Inactivated Comments 12/18/2023 3:50 PM 12/19/2023 2:41 PM Care Teams Hygiene Coordinator Relationship Specialty Start Date End Date Sancho Almazan DO PCP - General Internal Medicine 09/26/23
--- OUTSIDE RECORDS SUMMARY | 2024-11-04 09:12 | XMS_ITS | Encounter Summary ---
Author Organization [facility] Address [address] [place] [address] Care Team Providers Care Artisan Plasterer Name Role Phone Sancho Almazan DO Primary Care Provider [phone] Encounter Details Date Type Department Care Team (Late st Contact Info) Description 09/11/2018 Lab Requisition [facility] Care DermPath Lab [address] [place] [address] Rizwan [place] [address] Social History Tobacco Use Types [...] Comments DERMATOPATHOLOGY Routine 09/10/2018 12:0 0 AM ELECTRIC SWITCH REPAIRER documented in this encounter Results * DERMATOPATHOLOGY (09/10/2018 12:00 AM ELECTRIC SWITCH REPAIRER) Case Report Dermatopathology Report Case: [id number] Authorizing Provider: Rizwan Garland MD Collected: 09/10/2018 12:00 AM Pathologist: Karen Sterling MD Received: 09/11/2018 12:07 PM Specimens: A) - Skin, right side nose at alar groove B) - Skin, left alar groove 12:25 PM ELECTRIC SWITCH REPAIRER DERMATOPATHOLOGY LABORATORY Final Diagnosis Specimen A. SKIN, right side nose at alar groove: INTRADERMAL MELANOCYTIC NEVUS (D22.39) Specimen B. SKIN, left alar groove: INTRADERMAL MELANOCYTIC NEVUS (D22.39) 12:25 PM [facility] DERMATOPATHOLOGY LABORATORY Clinical History A-B: R/O BCC, cyst. 12:25 PM ELECTRIC SWITCH REPAIRER DERMATOPATHOLOGY LABORATORY Gross Description Specimen A: Received is one formalin filled container labeled with the patient's name and designated right side nose at alar groove. The specimen consists of a shave biopsy (2 pieces) measuring 2z8j2cm & 9a0z5yp. Jar 0. Specimen B: Received is one formalin filled container labeled with the patient's name and designated left alar groove. The specimen consists of a shave biopsy measuring [id number]. Jar 0. 12:25 PM ELECTRIC SWITCH REPAIRER DERMATOPATHOLOGY LABORATORY Microscopic Description Specimen A. SKIN, right side nose at alar groove: There are nests of cytologically bland melanocytes within the dermis that mature with depth. Specimen B. SKIN, left alar groove: There are nests of cytologically bland melanocytes within the dermis that mature with depth. 12:25 PM ELECTRIC SWITCH REPAIRER DERMATOPATHOLOGY LABORATORY Disclaimer An external and internal positive and negative controls are appropriate for the histochemical, immunohistochemical and immunofluorescence stain(s) in this case (if any), except where stated explicitly. The performance characteristics of the stain(s) cited in this report were developed and its performance characteristic determined by the Dermatopathology Laboratory at [facility], directed by Dr. Tanya Ramirez. These tests need not be, and therefore are not, approved by the [place] Food and Drug Administration. The tests are used for clinical purposes. Billing Codes Specimen Charges Stain Charges 94367 [id number] 1 1 12:25 PM ELECTRIC SWITCH REPAIRER DERMATOPATHOLOGY LABORATORY Embedded Images 12:25 PM ELECTRIC SWITCH REPAIRER DERMATOPATHOLOGY LABORATORY Pathology/Cytology TISSUE SPECIMEN FROM SKIN / Unknown 09/10/2018 09/11/2018 12:07 PM ELECTRIC SWITCH REPAIRER Miscellaneous samples (specimen) TISSUE SPECIMEN FROM SKIN / Unknown 09/10/2018 09/11/2018 12:07 PM ELECTRIC SWITCH REPAIRER Rizwan Garland MD LAB - PATHOLOGY/CYTO LOGY ORDERABLES DERMATOPATHOLOGY LABORATORY [facility] - Department of Dermatology [address] [place] [address], 5th Floor Lab [address] [phone] documented in this encounter Visit Diagnoses Not on filedocumented in this encounter Care Teams Artisan Plasterer Relationship Specialty Start Date End Date Sancho Almazan DO PCP - General Internal Medicine 09/26/23 documented as of this encounter
--- OUTSIDE RECORDS SUMMARY | 2024-11-04 09:12 | XMS_ITS | Continuity of Care Document ---
Author Organization [facility] Address [address] [place] [address] Phone Care Team Providers Care Associate Professor Of Literature Name Role Phone Viveros OD, Arron Unavailable Unavailable Procedures Procedure Date Eye Exam & Treatment Refraction Eye Exam & Treatment No Script Eye Exam & Treatment Refraction Eye Exam & Treatment Refraction Advance Directives Directive Yes / No Effective Date File Name No Information Encounters Encounter Description Practice Location Reason(s) For Visit Diagnoses Date Provider Providers Copied on Encounter [facility], [address] [place] [address] [address], [place], [place], [id number], [place] tel:[phone] [facility] No Information 6-201 0 Viveros OD Arron. [address], [place], [place], [facility], [place]. tel:[phone] [facility], [address] [place] [address] [address], [place], [place], [id number], [place] tel:[phone] [facility] No Information 9-200 9 Viveros OD Arron. [address], [place], [address], [place]. tel:[phone] [facility], [address], [place], [place], [id number], tel:[phone] [facility] No Information 1-200 8 Viveros OD Arron. [address], [place], [address], [place]. tel:[phone] [facility], [address], [place], [place], [address], [place] tel:[phone] [facility] No Information 0200 7 Viveros OD Arron. [address] , [address], [place], [address], [place]. tel:[phone] Family History Family Member Type Diagnosis Age At Onset No Information Payers Payer name Insurance type Covered libertarian ID Authoriza tibertha(s) [place] [id number] [facility] [id number] Social History Type Description Quantity Date Captured [...]
--- OUTSIDE RECORDS SUMMARY | 2024-11-04 09:12 | XMS_ITS | Referral Summary ---
Author Organization [facility] [employer] Address [address] [place] [address] Care Team Providers Care High School Assistant Principal Name Role Phone KasandraSancho haines Mihir DO Primary Care Provider [phone] Source Comments [facility] [employer],non-owned Affiliates and Associated Physician Practices is amultiple site organization consisting of ambulatory clinics and hospital sitesin [place], [place], [place] and [place]. This disclosure is being madepursuant to the Care Everywhere program and may not contain all information available regarding this patient. Last updated 18.[facility] [employer] Allergies No known active allergies Medications * [...] fluticasone propionate (Flonase) 50 MCG/ACT nasal spray [place] 2 (two) sprays into each nostril at [...] and heating? Not hard at all 12/19/2023 [facility] - Occupational Stress [...] place to sleep or slept in a skilled nursing (including now)? No 12/19/2023 Sex and Gender [...] on file Medical Devices Implanted Type Area Small Equipment Operator Device Identifier Shelf Expiration Date Model / Serial / Lot Cmnt Bone Plc R 40gm Grn Implanted:Qty: 2 on 12/18/2023 by Darius Alexandra MD at [facility] Left: Knee [employer] 04/01/2026 [id number] / / [id number] Cmpnt Fem Kn Lt Cr Cmnt Prm Vngrd Intlk 70 Mm Implanted:Qty: 1 on 12/18/2023 by Darius Alexandra MD at [facility] Left: Knee [employer] 09/11/2033 [id number] / / [id number] Cmpnt Ptlr Std 31mm 3 Pg Kn Ser A Implanted:Qty: 1 on 12/18/2023 by Darius Alexandra MD at [facility] Left: Knee [employer] 09/13/2028 [id number] / / [id number] Tray Tib 79mm Kn Cocr I Beam Implanted:Qty: 1 on 12/18/2023 by Darius Alexandra MD at [facility] Left: Knee [employer] 10/08/2033 [id number] / / [id number] Brng [id number] Vngrd Vivacit-E Kn Ant Stab Implanted:Qty: 1 on 12/18/2023 by Darius Alexandra MD at [facility] Left: Knee [employer] 04/08/2027 [id number] / / [id number] Advance Directives Documents on File Type Date Recorded Patient Thermocouple Tester Expl anation Adv Directive/Living Will/POA 11/07/2023 7:17 PM * Full Code (Latest Code Status on File) Date Activated Date Inactivated Comments 12/18/2023 3:50 PM 12/19/2023 2:41 PM Care Teams High School Assistant Principal Relationship Specialty Start Date End Date Sancho Almazan DO PCP - General Internal Medicine 09/26/23
== END 2024-11-04 08:48 | disposition home or self-care (01) ==
PROVIDERS: PCP Internal Medicine; Visit Provider Internal Medicine
DX: R31.0 Gross hematuria (principal)
CPT/HCPCS: 74177; Q9967